=== PATIENT | female | born 1995 | race Caucasian/White ===

== ENCOUNTER 2018-08-15 10:45 | Outpatient (RCR) | payer OTHER, MEDICAID, SELFPAY ==
--- NOTE | 2018-04-16 06:49 | PT.OIE ---
Addendum entered and electronically signed by Vickie Gonzales PT 05/02/18 14:08: Date of care should be 04/12/18 Original Note: Current Diagnoses Patellofemoral disorders, left knee (04/12/18) Other specified disorders of muscle (04/12/18) Provider Visit Care Team Role Provider Type Amy Arvizu MD Family Provider Physician Primary Care Provider Specialty: PACKAGE CENTER SUPERVISOR Address: [address] [place] [address], [id number] Email: [email or web address] TYRONE Dickerson Attending Provider Advanced Elderly Sitter Specialty: Medical Address: [address] [place] [address], [id number] Email: Physical Therapy Initial Evaluation PT-OP-A Visit Information Start: 04/16/18 06:26 Freq: Status: Active Protocol: Document 04/12/18 09:45 [facility] (Rec: 04/16/18 06:49 [facility] [email or web address]) Out-Patient Physical Therapy Visit Information Visit Information Visit Type Initial Evaluation Visit Start Time 09:45 Visit Stop Time 10:30 Total Visit Minutes 45 Visit Number 1 Evaluation Information Evaluation Date 04/12/18 PT-OP-B Current Condition Start: 04/16/18 06:26 Freq: Status: Active Protocol: Document 04/12/18 09:45 [facility] (Rec: 04/16/18 06:49 [facility] [email or web address]) Current Condition History of Current Condition Onset Date symptoms increased after her second baby December 2016 Current Complaints urinary incontinence and knee pain L>R History of Current Condition Itzel is a 23 year old female with history of bilateral knee pain L >R that began in highschool and limited her ability to engage in PE and sports activities. She has had two vaginal deliveries in January and December 2016. She notes since that time she has experienced urinary leakage that occurs frequently 2-3 times per day. Treatment Goals Patient/Caregiver Goals Itzel would like to decrease her knee pain allowing her to run and improve strength of her pelvic floor to prevent urinary leakage PT-OP-I Pelvic Floor Start: 04/16/18 06:26 Freq: Status: Active Protocol: Document 04/12/18 09:45 [facility] (Rec: 04/16/18 06:49 [facility] [email or web address]) Pelvic Floor Assessment Urine Pelvic Floor Surgery No Urinary Symptoms Urge Sensation Leakage Size Small Leakage Cause Cough Exercise Lifting Sneeze Urge Leaks Per Day 4 Nocturia wakes 2 times at night Urine Pad Type Panty Liner Contraction Ability Voluntary Contraction Weak Voluntary Relaxation Weak Manual Muscle Testing Left 3 Manual Muscle Testing Right 3 Manual Muscle Testing Anterior 3 Manual Muscle Testing Posterior 3 Muscle Endurance (Seconds) 5 PT-OP-J Posture/Palpation/Skin Start: 04/16/18 06:26 Freq: Status: Active Protocol: Document 04/12/18 09:45 [facility] (Rec: 04/16/18 06:49 [facility] [email or web address]) Posture Evaluation Comments Posture Comments The patient stands with hip IR bilaterally, she walks with a gluteus medius drop Palpation Assessment Location Two Palpation Location left knee patella tendon Palpation Findings Tenderness Palpation Details tenderness to the patella tendon and distally under the patella One Palpation Location ITB Palpation Findings Soft Tissue Tightness Palpation Details Tightness of the ITB distal attachments bilaterally PT-OP-K Range of Motion Start: 04/16/18 06:26 Freq: Status: Active Protocol: Document 04/12/18 09:45 [facility] (Rec: 04/16/18 06:49 [facility] [email or web address]) Hip Goniometric Range of Motion Hip ROM Limitations Hip ROM Limitations Soft Tissue Tightness Muscle Weakness Comments limited in hip ER due to soft tissue tightness and gluteus medius weakness the hips like to be in a IR position at rest Knee Goniometric Range of Motion Knee Measured in Degrees Right Knee ROM WFL Yes Left Knee ROM WFL Yes PT-OP-M Strength Start: 04/16/18 06:26 Freq: Status: Active Protocol: Document 04/12/18 09:45 [facility] (Rec: 04/16/18 06:49 [facility] [email or web address]) Trunk Strength Trunk Manual Muscle Testing Core Stabilization Decreased core stabilization with + ASLR test for left sided pelvic weakness, decreased ability for transverse abdominal activation Hip Strength Hip Manual Muscle Testing Right Abduction 3+ Fair+ External Rotation 3+ Fair+ Left Abduction 3- Fair- External Rotation 3 Fair Knee Strength Knee Manual Muscle Testing Right Flexion (S2) 4+ Good+ Extension (L3) 4+ Good+ Left Flexion (S2) 4 Good Extension (L3) 4 Good PT-OP-T Assessment and Plan Start: 04/16/18 06:26 Freq: Status: Active Protocol: Document 04/12/18 09:45 [facility] (Rec: 04/16/18 06:49 [facility] [email or web address]) Physical Therapy Assessment Rehab Potential Rehabilitation Potential Good Impairments Impairments Activity Tolerance Pain Posture Soft Tissue Mobility Strength Goals Four Impairment Decreased endurance of the pelvic floor Short Term Goal (STG) Improve pelvic floor long hold endurance to 10 second hold time in supine STG Duration 6 weeks Three Impairment knee pain rated 4/5 People Manager Goal (LTG) Decrease complaints of knee pain with activity and Itzel is able to return to activities such as running with out knee pain LTG Duration 8 weeks Two Impairment Hip weakness left greater than right Fdc Goal (LTG) Improve strength of the hip ER and gluteus medius to provide pelvic stability and to help decrease complaints of patella femoral symptoms LTG Duration 8 weeks One Impairment urinary incontinence that effects daily life and work activities People Manager Goal (LTG) Itzel is educated on pelvic floor stabilization exercises to improve her support of the bladder. She is also educated on dietary irritants that increase symptoms of urinary incontinence LTG Duration 8 weeks Assessment Summary Assessment Itzel presents to PT today with symptoms of urinary incontinence following 2 vaginal deliveries and patella femoral pain that she has had since high school. With examination she is very weak in her inner core and hip strength. Her hips tend to rest in a IR position bilaterally and she walks with a gluteus medius drop. She is able to activate her levator ani but she is weak in all parts of the levator ani and lacks a ability to sustain a contraction. I feel both her knees and her pelvic floor will be greately improved with a exercise program addressing core and hip strength. Physical Therapy Plan Frequency and Duration Frequency of Treatment 2x/Week Duration of Treatment 8 weeks Plan of Care Start Date 04/12/18 Plan of Care End Date 06/07/18 Therapeutic Interventions Therapeutic Interventions Home Exercise Program Manual Therapy Neuromuscular Re-education Patient/Caregiver Education Self-Care/Home Management Soft Tissue Mobilization Therapeutic Exercises Modalities Biofeedback Cold Pack/Ice Massage
--- NOTE | 2018-04-16 06:49 | PT.OPPOC ---
Current Diagnoses Patellofemoral disorders, left knee (04/12/18) Other specified disorders of muscle (04/12/18) Provider Visit Care Team Role Provider Type Amy Arvizu MD Family Provider Physician Primary Care Provider Specialty: SEWAGE PLANT SUPERVISOR Address: [address] [place] [address], [id number] Email: [email or web address] TYRONE Dickerson Attending Provider Advanced Digital Media Director Specialty: Medical Address: [address] [place] [address], [address] Email: Plan Of Care PT-OP-T Assessment and Plan Start: 04/16/18 06:26 Freq: Status: Active Protocol: Document 04/12/18 09:45 [facility] (Rec: 04/16/18 06:49 [facility] [email or web address]) Physical Therapy Assessment Rehab Potential Rehabilitation Potential Good Impairments Impairments Activity Tolerance Pain Posture Soft Tissue Mobility Strength Goals Four Impairment Decreased endurance of the pelvic floor Short Term Goal (STG) Improve pelvic floor long hold endurance to 10 second hold time in supine STG Duration 6 weeks Three Impairment knee pain rated 4/5 Penitentiary Goal (LTG) Decrease complaints of knee pain with activity and Itzel is able to return to activities such as running with out knee pain LTG Duration 8 weeks Two Impairment Hip weakness left greater than right Penitentiary Goal (LTG) Improve strength of the hip ER and gluteus medius to provide pelvic stability and to help decrease complaints of patella femoral symptoms LTG Duration 8 weeks One Impairment urinary incontinence that effects daily life and work activities Quarry Manager Goal (LTG) Itzel is educated on pelvic floor stabilization exercises to improve her support of the bladder. She is also educated on dietary irritants that increase symptoms of urinary incontinence LTG Duration 8 weeks Assessment Summary Assessment Itzel presents to PT today with symptoms of urinary incontinence following 2 vaginal deliveries and patella femoral pain that she has had since high school. With examination she is very weak in her inner core and hip strength. Her hips tend to rest in a IR position bilaterally and she walks with a gluteus medius drop. She is able to activate her levator ani but she is weak in all parts of the levator ani and lacks a ability to sustain a contraction. I feel both her knees and her pelvic floor will be greately improved with a exercise program addressing core and hip strength. Physical Therapy Plan Frequency and Duration Frequency of Treatment 2x/Week Duration of Treatment 8 weeks Plan of Care Start Date 04/12/18 Plan of Care End Date 06/07/18 Therapeutic Interventions Therapeutic Interventions Home Exercise Program Manual Therapy Neuromuscular Re-education Patient/Caregiver Education Self-Care/Home Management Soft Tissue Mobilization Therapeutic Exercises Modalities Biofeedback Cold Pack/Ice Massage Plan of Care Dates Plan of Care Start Date 04/12/18 Plan of Care End Date 06/07/18 Please Sign and Return: I have reviewed this Plan of Care and certify that the skilled therapy services above are required to meet the patient?s needs. Physician Signature Date Printed Name and Credentials Clinical Instructor Signature Printed Name and Credentials
--- NOTE | 2018-04-26 16:20 | PT.OTN ---
Current Diagnoses Patellofemoral disorders, left knee (04/26/18) Other specified disorders of muscle (04/26/18) Physical Therapy Treatment Note PT-OP-A Visit Information Start: 04/16/18 06:26 Freq: Status: Active Protocol: Document 04/12/18 09:45 [facility] (Rec: 04/16/18 06:49 [facility] [email or web address]) Out-Patient Physical Therapy Visit Information Visit Information Visit Type Initial Evaluation Visit Start Time 09:45 Visit Stop Time 10:30 Total Visit Minutes 45 Visit Number 1 Evaluation Information Evaluation Date 04/12/18 PT-OP-B Current Condition Start: 04/16/18 06:26 Freq: Status: Active Protocol: Document 04/12/18 09:45 [facility] (Rec: 04/16/18 06:49 [facility] [email or web address]) Current Condition History of Current Condition Onset Date symptoms increased after her second baby December 2016 Current Complaints urinary incontinence and knee pain L>R History of Current Condition Itzel is a 23 year old female with history of bilateral knee pain L >R that began in highschool and limited her ability to engage in PE and sports activities. She has had two vaginal deliveries in January and December 2016. She notes since that time she has experienced urinary leakage that occurs frequently 2-3 times per day. Treatment Goals Patient/Caregiver Goals Itzel would like to decrease her knee pain allowing her to run and improve strength of her pelvic floor to prevent urinary leakage PT-OP-C Subjective Start: 04/16/18 06:26 Freq: Status: Active Protocol: Document 04/10/18 16:30 [facility] (Rec: 04/26/18 16:20 [facility] [email or web address]) OP-PT Subjective Patient Comments Patient Comments Itzel reports she was on vacation last week and had a virus so she didn't get as many of her home exercises done as she would have liked. PT-OP-I Pelvic Floor Start: 04/16/18 06:26 Freq: Status: Active Protocol: Document 04/12/18 09:45 [facility] (Rec: 04/16/18 06:49 [facility] [email or web address]) Pelvic Floor Assessment Urine Pelvic Floor Surgery No Urinary Symptoms Urge Sensation Leakage Size Small Leakage Cause Cough Exercise Lifting Sneeze Urge Leaks Per Day 4 Nocturia wakes 2 times at night Urine Pad Type Panty Liner Contraction Ability Voluntary Contraction Weak Voluntary Relaxation Weak Manual Muscle Testing Left 3 Manual Muscle Testing Right 3 Manual Muscle Testing Anterior 3 Manual Muscle Testing Posterior 3 Muscle Endurance (Seconds) 5 PT-OP-J Posture/Palpation/Skin Start: 04/16/18 06:26 Freq: Status: Active Protocol: Document 04/12/18 09:45 [facility] (Rec: 04/16/18 06:49 [facility] [email or web address]) Posture Evaluation Comments Posture Comments The patient stands with hip IR bilaterally, she walks with a gluteus medius drop Palpation Assessment Location Two Palpation Location left knee patella tendon Palpation Findings Tenderness Palpation Details tenderness to the patella tendon and distally under the patella One Palpation Location ITB Palpation Findings Soft Tissue Tightness Palpation Details Tightness of the ITB distal attachments bilaterally PT-OP-K Range of Motion Start: 04/16/18 06:26 Freq: Status: Active Protocol: Document 04/12/18 09:45 [facility] (Rec: 04/16/18 06:49 [facility] [email or web address]) Hip Goniometric Range of Motion Hip ROM Limitations Hip ROM Limitations Soft Tissue Tightness Muscle Weakness Comments limited in hip ER due to soft tissue tightness and gluteus medius weakness the hips like to be in a IR position at rest Knee Goniometric Range of Motion Knee Measured in Degrees Right Knee ROM WFL Yes Left Knee ROM WFL Yes PT-OP-M Strength Start: 04/16/18 06:26 Freq: Status: Active Protocol: Document 04/12/18 09:45 [facility] (Rec: 04/16/18 06:49 [facility] [email or web address]) Trunk Strength Trunk Manual Muscle Testing Core Stabilization Decreased core stabilization with + ASLR test for left sided pelvic weakness, decreased ability for transverse abdominal activation Hip Strength Hip Manual Muscle Testing Right Abduction 3+ Fair+ External Rotation 3+ Fair+ Left Abduction 3- Fair- External Rotation 3 Fair Knee Strength Knee Manual Muscle Testing Right Flexion (S2) 4+ Good+ Extension (L3) 4+ Good+ Left Flexion (S2) 4 Good Extension (L3) 4 Good PT-OP-Q Treatments Start: 04/16/18 06:26 Freq: Status: Active Protocol: Document 04/12/18 09:45 [facility] (Rec: 04/16/18 06:52 [facility] [email or web address]) Therapeutic Exercises Supine Exercises 1 Supine Exercise Name pelvic floor long holds Reps/Minutes 10 second holds 10 second relaxation Sidelying Exercises 1 Sidelying Exercise Name sidelying clam shells and sidelying hip abduction Side bilateral Reps/Minutes 3 x 10 PT-OP-T Assessment and Plan Start: 04/16/18 06:26 Freq: Status: Active Protocol: Document 04/12/18 09:45 [facility] (Rec: 04/16/18 06:49 [facility] [email or web address]) Physical Therapy Assessment Rehab Potential Rehabilitation Potential Good Impairments Impairments Activity Tolerance Pain Posture Soft Tissue Mobility Strength Goals Four Impairment Decreased endurance of the pelvic floor Short Term Goal (STG) Improve pelvic floor long hold endurance to 10 second hold time in supine STG Duration 6 weeks Three Impairment knee pain rated 4/5 Boxing Instructor Goal (LTG) Decrease complaints of knee pain with activity and Itzel is able to return to activities such as running with out knee pain LTG Duration 8 weeks Two Impairment Hip weakness left greater than right Correction Goal (LTG) Improve strength of the hip ER and gluteus medius to provide pelvic stability and to help decrease complaints of patella femoral symptoms LTG Duration 8 weeks One Impairment urinary incontinence that effects daily life and work activities Boxing Instructor Goal (LTG) Itzel is educated on pelvic floor stabilization exercises to improve her support of the bladder. She is also educated on dietary irritants that increase symptoms of urinary incontinence LTG Duration 8 weeks Assessment Summary Assessment Itzel presents to PT today with symptoms of urinary incontinence following 2 vaginal deliveries and patella femoral pain that she has had since high school. With examination she is very weak in her inner core and hip strength. Her hips tend to rest in a IR position bilaterally and she walks with a gluteus medius drop. She is able to activate her levator ani but she is weak in all parts of the levator ani and lacks a ability to sustain a contraction. I feel both her knees and her pelvic floor will be greately improved with a exercise program addressing core and hip strength. Physical Therapy Plan Frequency and Duration Frequency of Treatment 2x/Week Duration of Treatment 8 weeks Plan of Care Start Date 04/12/18 Plan of Care End Date 06/07/18 Therapeutic Interventions Therapeutic Interventions Home Exercise Program Manual Therapy Neuromuscular Re-education Patient/Caregiver Education Self-Care/Home Management Soft Tissue Mobilization Therapeutic Exercises Modalities Biofeedback Cold Pack/Ice Massage
--- NOTE | 2018-05-02 14:05 | PT.OTN ---
Current Diagnoses Patellofemoral disorders, left knee (05/02/18) Other specified disorders of muscle (05/02/18) Physical Therapy Treatment Note PT-OP-A Visit Information Start: 04/16/18 06:26 Freq: Status: Active Protocol: Document 05/02/18 13:59 [facility] (Rec: 05/02/18 14:05 [facility] [email or web address]) Out-Patient Physical Therapy Visit Information Visit Information Visit Type Treatment Note Visit Start Time 09:00 Visit Stop Time 09:45 Total Visit Minutes 45 Visit Number 3 PT-OP-B Current Condition Start: 04/16/18 06:26 Freq: Status: Active Protocol: Document 04/12/18 09:45 [facility] (Rec: 04/16/18 06:49 [facility] [email or web address]) Current Condition History of Current Condition Onset Date symptoms increased after her second baby December 2016 Current Complaints urinary incontinence and knee pain L>R History of Current Condition Itzel is a 23 year old female with history of bilateral knee pain L >R that began in highschool and limited her ability to engage in PE and sports activities. She has had two vaginal deliveries in January and December 2016. She notes since that time she has experienced urinary leakage that occurs frequently 2-3 times per day. Treatment Goals Patient/Caregiver Goals Itzel would like to decrease her knee pain allowing her to run and improve strength of her pelvic floor to prevent urinary leakage PT-OP-C Subjective Start: 04/16/18 06:26 Freq: Status: Active Protocol: Document 05/02/18 13:59 [facility] (Rec: 05/02/18 14:05 [facility] [email or web address]) OP-PT Subjective Patient Comments Patient Comments Itzel reports she has been working on her home exercise program PT-OP-I Pelvic Floor Start: 04/16/18 06:26 Freq: Status: Active Protocol: Document 04/12/18 09:45 [facility] (Rec: 04/16/18 06:49 [facility] [email or web address]) Pelvic Floor Assessment Urine Pelvic Floor Surgery No Urinary Symptoms Urge Sensation Leakage Size Small Leakage Cause Cough Exercise Lifting Sneeze Urge Leaks Per Day 4 Nocturia wakes 2 times at night Urine Pad Type Panty Liner Contraction Ability Voluntary Contraction Weak Voluntary Relaxation Weak Manual Muscle Testing Left 3 Manual Muscle Testing Right 3 Manual Muscle Testing Anterior 3 Manual Muscle Testing Posterior 3 Muscle Endurance (Seconds) 5 PT-OP-J Posture/Palpation/Skin Start: 04/16/18 06:26 Freq: Status: Active Protocol: Document 04/12/18 09:45 [facility] (Rec: 04/16/18 06:49 [facility] [email or web address]) Posture Evaluation Comments Posture Comments The patient stands with hip IR bilaterally, she walks with a gluteus medius drop Palpation Assessment Location Two Palpation Location left knee patella tendon Palpation Findings Tenderness Palpation Details tenderness to the patella tendon and distally under the patella One Palpation Location ITB Palpation Findings Soft Tissue Tightness Palpation Details Tightness of the ITB distal attachments bilaterally PT-OP-K Range of Motion Start: 04/16/18 06:26 Freq: Status: Active Protocol: Document 04/12/18 09:45 [facility] (Rec: 04/16/18 06:49 [facility] [email or web address]) Hip Goniometric Range of Motion Hip ROM Limitations Hip ROM Limitations Soft Tissue Tightness Muscle Weakness Comments limited in hip ER due to soft tissue tightness and gluteus medius weakness the hips like to be in a IR position at rest Knee Goniometric Range of Motion Knee Measured in Degrees Right Knee ROM WFL Yes Left Knee ROM WFL Yes PT-OP-M Strength Start: 04/16/18 06:26 Freq: Status: Active Protocol: Document 04/12/18 09:45 [facility] (Rec: 04/16/18 06:49 [facility] [email or web address]) Trunk Strength Trunk Manual Muscle Testing Core Stabilization Decreased core stabilization with + ASLR test for left sided pelvic weakness, decreased ability for transverse abdominal activation Hip Strength Hip Manual Muscle Testing Right Abduction 3+ Fair+ External Rotation 3+ Fair+ Left Abduction 3- Fair- External Rotation 3 Fair Knee Strength Knee Manual Muscle Testing Right Flexion (S2) 4+ Good+ Extension (L3) 4+ Good+ Left Flexion (S2) 4 Good Extension (L3) 4 Good PT-OP-Q Treatments Start: 04/16/18 06:26 Freq: Status: Active Protocol: Document 05/02/18 13:59 [facility] (Rec: 05/02/18 14:05 [facility] [email or web address]) Cardio Equipment Bicycle (Upright) Duration (Minutes) 5 Gym Equipment Shuttle Recovery Bilateral Squats Details shuttle squats Reps/Time 50 # double leg 3x10 25# single leg 3 x 10 Therapeutic Exercises Supine Exercises 2 Supine Exercise Name rollouts with theraband Reps/Minutes 2x10 1 Supine Exercise Name pelvic floor long holds Reps/Minutes 10 second holds 10 second relaxation Sidelying Exercises 2 Sidelying Exercise Name sidelying hip circles 1 Sidelying Exercise Name sidelying clam shells and sidelying hip abduction Side bilateral Reps/Minutes 3 x 10 Standing Exercises 1 Standing Exercise Name mini squats Other Exercises 1 Other Exercise Name quadraped cat cow and abdominal bracing PT-OP-T Assessment and Plan Start: 04/16/18 06:26 Freq: Status: Active Protocol: Document 05/02/18 13:59 [facility] (Rec: 05/02/18 14:05 [facility] [email or web address]) Physical Therapy Assessment Assessment Summary Assessment good tolerance today for new exercises. Keep working on knee and hip stabilization and pelvic floor neuro re- education. Add in NMES next visit Physical Therapy Plan Frequency and Duration Frequency of Treatment 2x/Week Duration of Treatment 8 weeks Plan of Care Start Date 04/12/18 Plan of Care End Date 06/07/18 Therapeutic Interventions Therapeutic Interventions Home Exercise Program Manual Therapy Neuromuscular Re-education Patient/Caregiver Education Self-Care/Home Management Soft Tissue Mobilization Therapeutic Exercises Modalities Biofeedback Cold Pack/Ice Massage Next Visit Focus/Plan Next Note Type Treatment Note Next Visit Plan add NMES next visit
--- NOTE | 2018-05-23 11:12 | PT.OTN ---
Current Diagnoses Patellofemoral disorders, left knee (05/23/18) Other specified disorders of muscle (05/23/18) Physical Therapy Treatment Note PT-OP-A Visit Information Start: 04/16/18 06:26 Freq: Status: Active Protocol: Document 05/23/18 10:59 AM[facility] (Rec: 05/23/18 11:12 AMH [email or web address]) Out-Patient Physical Therapy Visit Information Visit Information Visit Type Progress Note Visit Start Time 10:00 Visit Stop Time 10:50 Total Visit Minutes 50 Visit Number 4 Evaluation Information Evaluation Date 04/12/18 PT-OP-B Current Condition Start: 04/16/18 06:26 Freq: Status: Active Protocol: Document 04/12/18 09:45 AMH (Rec: 04/16/18 06:49 AMH [email or web address]) Current Condition History of Current Condition Onset Date symptoms increased after her second baby December 2016 Current Complaints urinary incontinence and knee pain L>R History of Current Condition Itzel is a 23 year old female with history of bilateral knee pain L >R that began in highschool and limited her ability to engage in PE and sports activities. She has had two vaginal deliveries in January and December 2016. She notes since that time she has experienced urinary leakage that occurs frequently 2-3 times per day. Treatment Goals Patient/Caregiver Goals Itzel would like to decrease her knee pain allowing her to run and improve strength of her pelvic floor to prevent urinary leakage PT-OP-C Subjective Start: 04/16/18 06:26 Freq: Status: Active Protocol: Document 05/23/18 10:59 AMH (Rec: 05/23/18 11:12 AMH [email or web address]) OP-PT Subjective Patient Comments Patient Comments Itzel notes her symptoms of urinary leakage are a little better. She is trying to fit in her home exercises PT-OP-I Pelvic Floor Start: 04/16/18 06:26 Freq: Status: Active Protocol: Document 05/23/18 10:59 AMH (Rec: 05/23/18 11:12 AMH [email or web address]) Pelvic Floor Assessment Urine Pelvic Floor Surgery No Urinary Symptoms Urge Sensation Leakage Size Small Leakage Cause Cough Exercise Lifting Sneeze Urge Leaks Per Day 2-3 Nocturia wakes 1-2 Urine Pad Type Panty Liner SEMG (uV) Baseline 2 10 Second Contraction 10.2 Recruitment Pattern Good Relaxation Fair Stability of Hold Fair SEMG Stability of Rest Fair Contraction Ability Voluntary Contraction Moderate Voluntary Relaxation Weak Manual Muscle Testing Left 3 Manual Muscle Testing Right 3 Manual Muscle Testing Anterior 3 Manual Muscle Testing Posterior 4 Muscle Endurance (Seconds) 5 Comments Pelvic Floor Comments improving strength of the pelvic floor and improved resting tone PT-OP-J Posture/Palpation/Skin Start: 04/16/18 06:26 Freq: Status: Active Protocol: Document 04/12/18 09:45 AMH (Rec: 04/16/18 06:49 AMH [email or web address]) Posture Evaluation Comments Posture Comments The patient stands with hip IR bilaterally, she walks with a gluteus medius drop Palpation Assessment Location Two Palpation Location left knee patella tendon Palpation Findings Tenderness Palpation Details tenderness to the patella tendon and distally under the patella One Palpation Location ITB Palpation Findings Soft Tissue Tightness Palpation Details Tightness of the ITB distal attachments bilaterally PT-OP-K Range of Motion Start: 04/16/18 06:26 Freq: Status: Active Protocol: Document 04/12/18 09:45 AMH (Rec: 04/16/18 06:49 AMH [email or web address]) Hip Goniometric Range of Motion Hip ROM Limitations Hip ROM Limitations Soft Tissue Tightness Muscle Weakness Comments limited in hip ER due to soft tissue tightness and gluteus medius weakness the hips like to be in a IR position at rest Knee Goniometric Range of Motion Knee Measured in Degrees Right Knee ROM WFL Yes Left Knee ROM WFL Yes PT-OP-M Strength Start: 04/16/18 06:26 Freq: Status: Active Protocol: Document 05/23/18 10:59 AMH (Rec: 05/23/18 11:12 AMH [email or web address]) Knee Strength Knee Manual Muscle Testing Right Flexion (S2) 4+ Good+ Extension (L3) 4+ Good+ Left Flexion (S2) 4 Good Extension (L3) 4 Good PT-OP-Q Treatments Start: 04/16/18 06:26 Freq: Status: Active Protocol: Document 05/23/18 10:59 AMH (Rec: 05/23/18 11:12 AMH [email or web address]) Cardio Equipment Bicycle (Upright) Duration (Minutes) 5 Gym Equipment Shuttle Recovery Bilateral Squats Details shuttle squats Reps/Time 50 # double leg 3x10 25# single leg 3 x 10 Therapeutic Exercises Supine Exercises 3 Supine Exercise Name pelvic floor quick contractions 1 Supine Exercise Name pelvic floor long holds Reps/Minutes 10 second holds 10 second relaxation Sidelying Exercises 3 Sidelying Exercise Name manual quadracep stretch in sidelying 2 Sidelying Exercise Name sidelying hip circles 1 Sidelying Exercise Name sidelying clam shells and sidelying hip abduction Side bilateral Reps/Minutes 3 x 10 Standing Exercises 1 Standing Exercise Name mini squats Other Exercises 2 Other Exercise Name side steps in mini lunge with theraband 1 Other Exercise Name quadraped cat cow and abdominal bracing Neuro Re-Education Treatment Other Activities 1 Details NMES with pelvic floor education Reps/Duration 5 minutes PT-OP-T Assessment and Plan Start: 04/16/18 06:26 Freq: Status: Active Protocol: Document 05/23/18 10:59 AMH (Rec: 05/23/18 11:12 AMH [email or web address]) Physical Therapy Assessment Progress Towards Goals Progress Towards Goals Progressing Toward Goals Assessment Summary Assessment Itzel has been seen for 4 visits in PT. Treatment is focusing on both pelvic floor strengthening and strengthening of the knee and hips. 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 I have recommended super feet arch supports as well for Itzel. She tends to wear very flat shoes which may be contributing to knee pain symptoms. Pelvic floor strength is improving and Itzel is beginning to notice decreased leakage. Her goal is to be able to run without leakage. She would benefit from continued PT to progress strengthening Physical Therapy Plan Frequency and Duration Frequency of Treatment 2x/Week Duration of Treatment 8 weeks Plan of Care Start Date 05/23/18 Plan of Care End Date 07/19/18 Therapeutic Interventions Therapeutic Interventions Home Exercise Program Manual Therapy Neuromuscular Re-education Patient/Caregiver Education Self-Care/Home Management Soft Tissue Mobilization Therapeutic Exercises Modalities Biofeedback Cold Pack/Ice Massage Next Visit Focus/Plan Next Note Type Treatment Note Next Visit Plan continue working on progressing ther ex and strengthening
--- NOTE | 2018-05-23 11:12 | PT.OPPOC ---
Current Diagnoses Patellofemoral disorders, left knee (05/23/18) Other specified disorders of muscle (05/23/18) Provider Visit Care Team Role Provider Type Amy Arvizu MD Family Provider Physician Primary Care Provider Specialty: [employer] Address: [address] [place] [address], [id number] Email: [email or web address] TYRONE Dickerson Attending Provider [facility] Home Specialty: Medical Address: [address] [place] [address], [phone] Email: Plan Of Care PT-OP-T Assessment and Plan Start: 04/16/18 06:26 Freq: Status: Active Protocol: Document 05/23/18 10:59 AMH (Rec: 05/23/18 11:12 AMH [email or web address]) Physical Therapy Assessment Progress Towards Goals Progress Towards Goals Progressing Toward Goals Assessment Summary Assessment Itzel has been seen for 4 visits in PT. Treatment is focusing on both pelvic floor strengthening and strengthening of the knee and hips. 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 I have recommended super feet arch supports as well for Itzel. She tends to wear very flat shoes which may be contributing to knee pain symptoms. Pelvic floor strength is improving and Itzel is beginning to notice decreased leakage. Her goal is to be able to run without leakage. She would benefit from continued PT to progress strengthening Physical Therapy Plan Frequency and Duration Frequency of Treatment 2x/Week Duration of Treatment 8 weeks Plan of Care Start Date 05/23/18 Plan of Care End Date 07/19/18 Therapeutic Interventions Therapeutic Interventions Home Exercise Program Manual Therapy Neuromuscular Re-education Patient/Caregiver Education Self-Care/Home Management Soft Tissue Mobilization Therapeutic Exercises Modalities Biofeedback Cold Pack/Ice Massage Next Visit Focus/Plan Next Note Type Treatment Note Next Visit Plan continue working on progressing ther ex and strengthening Plan of Care Dates Plan of Care Start Date 05/23/18 Plan of Care End Date 07/19/18 Please Sign and Return: I have reviewed this Plan of Care and certify that the skilled therapy services above are required to meet the patient?s needs. Physician Signature Date Printed Name and Credentials Clinical Instructor Signature Printed Name and Credentials
--- NOTE | 2018-06-03 08:20 | PT.OTN ---
Current Diagnoses Patellofemoral disorders, left knee (05/30/18) Other specified disorders of muscle (05/30/18) Physical Therapy Treatment Note PT-OP-A Visit Information Start: 04/16/18 06:26 Freq: Status: Active Protocol: Document 05/30/18 10:00 AMH (Rec: 06/03/18 08:20 AMH [email or web address]) Out-Patient Physical Therapy Visit Information Visit Information Visit Type Treatment Note Visit Start Time 10:00 Visit Stop Time 10:45 Total Visit Minutes 45 Visit Number 5 PT-OP-B Current Condition Start: 04/16/18 06:26 Freq: Status: Active Protocol: Document 04/12/18 09:45 AMH (Rec: 04/16/18 06:49 AMH [email or web address]) Current Condition History of Current Condition Onset Date symptoms increased after her second baby December 2016 Current Complaints urinary incontinence and knee pain L>R History of Current Condition Itzel is a 23 year old female with history of bilateral knee pain L >R that began in highschool and limited her ability to engage in PE and sports activities. She has had two vaginal deliveries in January and December 2016. She notes since that time she has experienced urinary leakage that occurs frequently 2-3 times per day. Treatment Goals Patient/Caregiver Goals Itzel would like to decrease her knee pain allowing her to run and improve strength of her pelvic floor to prevent urinary leakage PT-OP-C Subjective Start: 04/16/18 06:26 Freq: Status: Active Protocol: Document 05/30/18 10:00 AMH (Rec: 06/03/18 08:20 AMH [email or web address]) OP-PT Subjective Patient Comments Patient Comments Itzel notes symptoms are improving some. She is on her menstrual cycle today so wont be able to do biofeedback PT-OP-I Pelvic Floor Start: 04/16/18 06:26 Freq: Status: Active Protocol: Document 05/23/18 10:59 AMH (Rec: 05/23/18 11:12 AMH [email or web address]) Pelvic Floor Assessment Urine Pelvic Floor Surgery No Urinary Symptoms Urge Sensation Leakage Size Small Leakage Cause Cough Exercise Lifting Sneeze Urge Leaks Per Day 2-3 Nocturia wakes 1-2 Urine Pad Type Panty Liner SEMG (uV) Baseline 2 10 Second Contraction 10.2 Recruitment Pattern Good Relaxation Fair Stability of Hold Fair SEMG Stability of Rest Fair Contraction Ability Voluntary Contraction Moderate Voluntary Relaxation Weak Manual Muscle Testing Left 3 Manual Muscle Testing Right 3 Manual Muscle Testing Anterior 3 Manual Muscle Testing Posterior 4 Muscle Endurance (Seconds) 5 Comments Pelvic Floor Comments improving strength of the pelvic floor and improved resting tone PT-OP-J Posture/Palpation/Skin Start: 04/16/18 06:26 Freq: Status: Active Protocol: Document 04/12/18 09:45 AMH (Rec: 04/16/18 06:49 AMH [email or web address]) Posture Evaluation Comments Posture Comments The patient stands with hip IR bilaterally, she walks with a gluteus medius drop Palpation Assessment Location Two Palpation Location left knee patella tendon Palpation Findings Tenderness Palpation Details tenderness to the patella tendon and distally under the patella One Palpation Location ITB Palpation Findings Soft Tissue Tightness Palpation Details Tightness of the ITB distal attachments bilaterally PT-OP-K Range of Motion Start: 04/16/18 06:26 Freq: Status: Active Protocol: Document 04/12/18 09:45 AMH (Rec: 04/16/18 06:49 AMH [email or web address]) Hip Goniometric Range of Motion Hip ROM Limitations Hip ROM Limitations Soft Tissue Tightness Muscle Weakness Comments limited in hip ER due to soft tissue tightness and gluteus medius weakness the hips like to be in a IR position at rest Knee Goniometric Range of Motion Knee Measured in Degrees Right Knee ROM WFL Yes Left Knee ROM WFL Yes PT-OP-M Strength Start: 04/16/18 06:26 Freq: Status: Active Protocol: Document 05/23/18 10:59 AMH (Rec: 05/23/18 11:12 AMH [email or web address]) Knee Strength Knee Manual Muscle Testing Right Flexion (S2) 4+ Good+ Extension (L3) 4+ Good+ Left Flexion (S2) 4 Good Extension (L3) 4 Good PT-OP-Q Treatments Start: 04/16/18 06:26 Freq: Status: Active Protocol: Document 05/30/18 10:00 AMH (Rec: 06/03/18 08:20 AMH [email or web address]) Cardio Equipment Bicycle (Upright) Duration (Minutes) 5 Gym Equipment Shuttle Recovery Bilateral Squats Details shuttle squats Reps/Time 50 # double leg 3x10 25# single leg 3 x 10 Therapeutic Exercises Supine Exercises 3 Supine Exercise Name pelvic floor quick contractions 2 Supine Exercise Name rollouts with theraband Reps/Minutes 2x10 1 Supine Exercise Name pelvic floor long holds Reps/Minutes 10 second holds 10 second relaxation Sidelying Exercises 3 Sidelying Exercise Name manual quadracep stretch in sidelying 1 Sidelying Exercise Name sidelying clam shells and sidelying hip abduction Side bilateral Reps/Minutes 3 x 10 Standing Exercises 1 Standing Exercise Name mini squats Other Exercises 2 Other Exercise Name side steps in mini lunge with theraband PT-OP-T Assessment and Plan Start: 04/16/18 06:26 Freq: Status: Active Protocol: Document 05/30/18 10:00 AMH (Rec: 06/03/18 08:20 AMH [email or web address]) Physical Therapy Assessment Assessment Summary Assessment good progress with tolerance for ther ex and improving knee alignment. Continue progressing ther ex as tolerated Physical Therapy Plan Frequency and Duration Frequency of Treatment 2x/Week Duration of Treatment 8 weeks Plan of Care Start Date 05/23/18 Plan of Care End Date 07/19/18 Therapeutic Interventions Therapeutic Interventions Home Exercise Program Manual Therapy Neuromuscular Re-education Patient/Caregiver Education Self-Care/Home Management Soft Tissue Mobilization Therapeutic Exercises Modalities Biofeedback Cold Pack/Ice Massage Next Visit Focus/Plan Next Note Type Treatment Note Next Visit Plan continue working on progressing ther ex and strengthening
--- NOTE | 2018-06-12 16:21 | PT.OTN ---
Current Diagnoses Patellofemoral disorders, left knee (06/12/18) Other specified disorders of muscle (06/12/18) Physical Therapy Treatment Note PT-OP-A Visit Information Start: 04/16/18 06:26 Freq: Status: Active Protocol: Document 06/12/18 13:10 AMH (Rec: 06/12/18 13:12 AMH [email or web address]) Out-Patient Physical Therapy Visit Information Visit Information Visit Type Treatment Note Visit Start Time 09:45 Visit Stop Time 10:30 Total Visit Minutes 45 Visit Number 6 PT-OP-B Current Condition Start: 04/16/18 06:26 Freq: Status: Active Protocol: Document 04/12/18 09:45 AMH (Rec: 04/16/18 06:49 AMH [email or web address]) Current Condition History of Current Condition Onset Date symptoms increased after her second baby December 2016 Current Complaints urinary incontinence and knee pain L>R History of Current Condition Itzel is a 23 year old female with history of bilateral knee pain L >R that began in highschool and limited her ability to engage in PE and sports activities. She has had two vaginal deliveries in January and December 2016. She notes since that time she has experienced urinary leakage that occurs frequently 2-3 times per day. Treatment Goals Patient/Caregiver Goals Itzel would like to decrease her knee pain allowing her to run and improve strength of her pelvic floor to prevent urinary leakage PT-OP-C Subjective Start: 04/16/18 06:26 Freq: Status: Active Protocol: Document 06/12/18 16:16 AMH (Rec: 06/12/18 16:21 AMH [email or web address]) OP-PT Subjective Patient Comments Patient Comments Itzel reports she is achey all over today. She is doing better with decreased complaints of leakage PT-OP-I Pelvic Floor Start: 04/16/18 06:26 Freq: Status: Active Protocol: Document 05/23/18 10:59 AMH (Rec: 05/23/18 11:12 AMH [email or web address]) Pelvic Floor Assessment Urine Pelvic Floor Surgery No Urinary Symptoms Urge Sensation Leakage Size Small Leakage Cause Cough Exercise Lifting Sneeze Urge Leaks Per Day 2-3 Nocturia wakes 1-2 Urine Pad Type Panty Liner SEMG (uV) Baseline 2 10 Second Contraction 10.2 Recruitment Pattern Good Relaxation Fair Stability of Hold Fair SEMG Stability of Rest Fair Contraction Ability Voluntary Contraction Moderate Voluntary Relaxation Weak Manual Muscle Testing Left 3 Manual Muscle Testing Right 3 Manual Muscle Testing Anterior 3 Manual Muscle Testing Posterior 4 Muscle Endurance (Seconds) 5 Comments Pelvic Floor Comments improving strength of the pelvic floor and improved resting tone PT-OP-J Posture/Palpation/Skin Start: 04/16/18 06:26 Freq: Status: Active Protocol: Document 04/12/18 09:45 AMH (Rec: 04/16/18 06:49 AMH [email or web address]) Posture Evaluation Comments Posture Comments The patient stands with hip IR bilaterally, she walks with a gluteus medius drop Palpation Assessment Location Two Palpation Location left knee patella tendon Palpation Findings Tenderness Palpation Details tenderness to the patella tendon and distally under the patella One Palpation Location ITB Palpation Findings Soft Tissue Tightness Palpation Details Tightness of the ITB distal attachments bilaterally PT-OP-K Range of Motion Start: 04/16/18 06:26 Freq: Status: Active Protocol: Document 04/12/18 09:45 AMH (Rec: 04/16/18 06:49 AMH [email or web address]) Hip Goniometric Range of Motion Hip ROM Limitations Hip ROM Limitations Soft Tissue Tightness Muscle Weakness Comments limited in hip ER due to soft tissue tightness and gluteus medius weakness the hips like to be in a IR position at rest Knee Goniometric Range of Motion Knee Measured in Degrees Right Knee ROM WFL Yes Left Knee ROM WFL Yes PT-OP-M Strength Start: 04/16/18 06:26 Freq: Status: Active Protocol: Document 05/23/18 10:59 AMH (Rec: 05/23/18 11:12 AMH [email or web address]) Knee Strength Knee Manual Muscle Testing Right Flexion (S2) 4+ Good+ Extension (L3) 4+ Good+ Left Flexion (S2) 4 Good Extension (L3) 4 Good PT-OP-Q Treatments Start: 04/16/18 06:26 Freq: Status: Active Protocol: Document 06/12/18 16:16 AMH (Rec: 06/12/18 16:21 AMH [email or web address]) Cardio Equipment Bicycle (Upright) Duration (Minutes) 5 Gym Equipment Shuttle Recovery Bilateral Squats Details shuttle squats Reps/Time 50 # double leg 3x10 25# single leg 3 x 10 Therapeutic Exercises Supine Exercises 3 Supine Exercise Name pelvic floor quick contractions 2 Supine Exercise Name rollouts with theraband Reps/Minutes 2x10 1 Supine Exercise Name pelvic floor long holds Reps/Minutes 10 second holds 10 second relaxation Other Exercises 3 Other Exercise Name hamstring stretch B PT-OP-T Assessment and Plan Start: 04/16/18 06:26 Freq: Status: Active Protocol: Document 06/12/18 16:16 AMH (Rec: 06/12/18 16:21 AMH [email or web address]) Physical Therapy Assessment Assessment Summary Assessment good increase today with average of 14.0 uv and max of 21 uv. Itzel has doubled her strength. We did talk about the importance of keeping her back relaxed with pelvic floor contractions today to decrease any spasm in her lumbar spine Physical Therapy Plan Frequency and Duration Frequency of Treatment 2x/Week Duration of Treatment 8 weeks Plan of Care Start Date 05/23/18 Plan of Care End Date 07/19/18 Therapeutic Interventions Therapeutic Interventions Home Exercise Program Manual Therapy Neuromuscular Re-education Patient/Caregiver Education Self-Care/Home Management Soft Tissue Mobilization Therapeutic Exercises Modalities Biofeedback Cold Pack/Ice Massage Next Visit Focus/Plan Next Note Type Treatment Note Next Visit Plan continue working on progressing ther ex and strengthening
--- NOTE | 2018-06-21 11:38 | PT.OTN ---
Current Diagnoses Patellofemoral disorders, left knee (06/21/18) Other specified disorders of muscle (06/21/18) Physical Therapy Treatment Note PT-OP-A Visit Information Start: 04/16/18 06:26 Freq: Status: Active Protocol: Document 06/21/18 11:32 [facility] (Rec: 06/21/18 11:38 [facility] [email or web address]) Out-Patient Physical Therapy Visit Information Visit Information Visit Type Treatment Note Visit Start Time 09:45 Visit Stop Time 10:30 Total Visit Minutes 45 Visit Number 7 Evaluation Information Evaluation Date 04/12/18 PT-OP-B Current Condition Start: 04/16/18 06:26 Freq: Status: Active Protocol: Document 04/12/18 09:45 [facility] (Rec: 04/16/18 06:49 [facility] [email or web address]) Current Condition History of Current Condition Onset Date symptoms increased after her second baby December 2016 Current Complaints urinary incontinence and knee pain L>R History of Current Condition Itzel is a 23 year old female with history of bilateral knee pain L >R that began in highschool and limited her ability to engage in PE and sports activities. She has had two vaginal deliveries in January and December 2016. She notes since that time she has experienced urinary leakage that occurs frequently 2-3 times per day. Treatment Goals Patient/Caregiver Goals Itzel would like to decrease her knee pain allowing her to run and improve strength of her pelvic floor to prevent urinary leakage PT-OP-C Subjective Start: 04/16/18 06:26 Freq: Status: Active Protocol: Document 06/21/18 11:32 [facility] (Rec: 06/21/18 11:38 [facility] [email or web address]) OP-PT Subjective Patient Comments Patient Comments Itzel notes she forgot her electrode today. Pelvic floor symptoms are doing better. SHe has the most symptoms right before her period which is right now. PT-OP-I Pelvic Floor Start: 04/16/18 06:26 Freq: Status: Active Protocol: Document 05/23/18 10:59 [facility] (Rec: 05/23/18 11:12 [facility] [email or web address]) Pelvic Floor Assessment Urine Pelvic Floor Surgery No Urinary Symptoms Urge Sensation Leakage Size Small Leakage Cause Cough Exercise Lifting Sneeze Urge Leaks Per Day 2-3 Nocturia wakes 1-2 Urine Pad Type Panty Liner SEMG (uV) Baseline 2 10 Second Contraction 10.2 Recruitment Pattern Good Relaxation Fair Stability of Hold Fair SEMG Stability of Rest Fair Contraction Ability Voluntary Contraction Moderate Voluntary Relaxation Weak Manual Muscle Testing Left 3 Manual Muscle Testing Right 3 Manual Muscle Testing Anterior 3 Manual Muscle Testing Posterior 4 Muscle Endurance (Seconds) 5 Comments Pelvic Floor Comments improving strength of the pelvic floor and improved resting tone PT-OP-J Posture/Palpation/Skin Start: 04/16/18 06:26 Freq: Status: Active Protocol: Document 04/12/18 09:45 [facility] (Rec: 04/16/18 06:49 [facility] [email or web address]) Posture Evaluation Comments Posture Comments The patient stands with hip IR bilaterally, she walks with a gluteus medius drop Palpation Assessment Location Two Palpation Location left knee patella tendon Palpation Findings Tenderness Palpation Details tenderness to the patella tendon and distally under the patella One Palpation Location ITB Palpation Findings Soft Tissue Tightness Palpation Details Tightness of the ITB distal attachments bilaterally PT-OP-K Range of Motion Start: 04/16/18 06:26 Freq: Status: Active Protocol: Document 04/12/18 09:45 [facility] (Rec: 04/16/18 06:49 [facility] [email or web address]) Hip Goniometric Range of Motion Hip ROM Limitations Hip ROM Limitations Soft Tissue Tightness Muscle Weakness Comments limited in hip ER due to soft tissue tightness and gluteus medius weakness the hips like to be in a IR position at rest Knee Goniometric Range of Motion Knee Measured in Degrees Right Knee ROM WFL Yes Left Knee ROM WFL Yes PT-OP-M Strength Start: 04/16/18 06:26 Freq: Status: Active Protocol: Document 05/23/18 10:59 [facility] (Rec: 05/23/18 11:12 [facility] [email or web address]) Knee Strength Knee Manual Muscle Testing Right Flexion (S2) 4+ Good+ Extension (L3) 4+ Good+ Left Flexion (S2) 4 Good Extension (L3) 4 Good PT-OP-Q Treatments Start: 04/16/18 06:26 Freq: Status: Active Protocol: Document 06/21/18 11:32 [facility] (Rec: 06/21/18 11:38 [facility] [email or web address]) Cardio Equipment Bicycle (Upright) Duration (Minutes) 5 Gym Equipment Shuttle Recovery Bilateral Squats Details shuttle squats Reps/Time 62 # double leg 3x10 25# single leg 3 x 10 Therapeutic Exercises Supine Exercises 3 Supine Exercise Name pelvic floor quick contractions 2 Supine Exercise Name rollouts with theraband Reps/Minutes 2x10 1 Supine Exercise Name pelvic floor long holds Reps/Minutes 10 second holds 10 second relaxation Sidelying Exercises 1 Sidelying Exercise Name sidelying clam shells and sidelying hip abduction Side bilateral Reps/Minutes 3 x 10 Comments with theraband Standing Exercises 2 Standing Exercise Name standing lunges Comments holding onto cable straps for support 1 Standing Exercise Name squats Comments holding on to cable straps Other Exercises 2 Other Exercise Name side steps in mini squat with theraband PT-OP-T Assessment and Plan Start: 04/16/18 06:26 Freq: Status: Active Protocol: Document 06/21/18 11:32 [facility] (Rec: 06/21/18 11:38 [facility] [email or web address]) Physical Therapy Assessment Assessment Summary Assessment improved knee alignment today with ther ex and decreasing c/ o knee symptoms Physical Therapy Plan Frequency and Duration Frequency of Treatment 2x/Week Duration of Treatment 8 weeks Plan of Care Start Date 05/23/18 Plan of Care End Date 07/19/18 Therapeutic Interventions Therapeutic Interventions Home Exercise Program Manual Therapy Neuromuscular Re-education Patient/Caregiver Education Self-Care/Home Management Soft Tissue Mobilization Therapeutic Exercises Modalities Biofeedback Cold Pack/Ice Massage Next Visit Focus/Plan Next Note Type Treatment Note Next Visit Plan continue working on progressing ther ex and strengthening
--- NOTE | 2018-06-27 14:18 | PT.OTN ---
Current Diagnoses Patellofemoral disorders, left knee (06/27/18) Other specified disorders of muscle (06/27/18) Physical Therapy Treatment Note PT-OP-A Visit Information Start: 04/16/18 06:26 Freq: Status: Active Protocol: Document 06/27/18 14:08 [facility] (Rec: 06/27/18 14:17 [facility] [id number]) Out-Patient Physical Therapy Visit Information Visit Information Visit Type Treatment Note Visit Start Time 10:00 Visit Stop Time 10:45 Total Visit Minutes 45 Visit Number 8 PT-OP-B Current Condition Start: 04/16/18 06:26 Freq: Status: Active Protocol: Document 04/12/18 09:45 [facility] (Rec: 04/16/18 06:49 [facility] [email or web address]) Current Condition History of Current Condition Onset Date symptoms increased after her second baby December 2016 Current Complaints urinary incontinence and knee pain L>R History of Current Condition Itzel is a 23 year old female with history of bilateral knee pain L >R that began in highschool and limited her ability to engage in PE and sports activities. She has had two vaginal deliveries in January and December 2016. She notes since that time she has experienced urinary leakage that occurs frequently 2-3 times per day. Treatment Goals Patient/Caregiver Goals Itzel would like to decrease her knee pain allowing her to run and improve strength of her pelvic floor to prevent urinary leakage PT-OP-C Subjective Start: 04/16/18 06:26 Freq: Status: Active Protocol: Document 06/27/18 14:08 [facility] (Rec: 06/27/18 14:17 [facility] [id number]) OP-PT Subjective Patient Comments Patient Comments Overall knee pain is decreasing and incontinence is decreased. Feeling like she has ankle joint pain PT-OP-I Pelvic Floor Start: 04/16/18 06:26 Freq: Status: Active Protocol: Document 05/23/18 10:59 [facility] (Rec: 05/23/18 11:12 [facility] [email or web address]) Pelvic Floor Assessment Urine Pelvic Floor Surgery No Urinary Symptoms Urge Sensation Leakage Size Small Leakage Cause Cough Exercise Lifting Sneeze Urge Leaks Per Day 2-3 Nocturia wakes 1-2 Urine Pad Type Panty Liner SEMG (uV) Baseline 2 10 Second Contraction 10.2 Recruitment Pattern Good Relaxation Fair Stability of Hold Fair SEMG Stability of Rest Fair Contraction Ability Voluntary Contraction Moderate Voluntary Relaxation Weak Manual Muscle Testing Left 3 Manual Muscle Testing Right 3 Manual Muscle Testing Anterior 3 Manual Muscle Testing Posterior 4 Muscle Endurance (Seconds) 5 Comments Pelvic Floor Comments improving strength of the pelvic floor and improved resting tone PT-OP-J Posture/Palpation/Skin Start: 04/16/18 06:26 Freq: Status: Active Protocol: Document 04/12/18 09:45 [facility] (Rec: 04/16/18 06:49 [facility] [email or web address]) Posture Evaluation Comments Posture Comments The patient stands with hip IR bilaterally, she walks with a gluteus medius drop Palpation Assessment Location Two Palpation Location left knee patella tendon Palpation Findings Tenderness Palpation Details tenderness to the patella tendon and distally under the patella One Palpation Location ITB Palpation Findings Soft Tissue Tightness Palpation Details Tightness of the ITB distal attachments bilaterally PT-OP-K Range of Motion Start: 04/16/18 06:26 Freq: Status: Active Protocol: Document 04/12/18 09:45 [facility] (Rec: 04/16/18 06:49 [facility] [email or web address]) Hip Goniometric Range of Motion Hip ROM Limitations Hip ROM Limitations Soft Tissue Tightness Muscle Weakness Comments limited in hip ER due to soft tissue tightness and gluteus medius weakness the hips like to be in a IR position at rest Knee Goniometric Range of Motion Knee Measured in Degrees Right Knee ROM WFL Yes Left Knee ROM WFL Yes PT-OP-M Strength Start: 04/16/18 06:26 Freq: Status: Active Protocol: Document 05/23/18 10:59 [facility] (Rec: 05/23/18 11:12 [facility] [email or web address]) Knee Strength Knee Manual Muscle Testing Right Flexion (S2) 4+ Good+ Extension (L3) 4+ Good+ Left Flexion (S2) 4 Good Extension (L3) 4 Good PT-OP-Q Treatments Start: 04/16/18 06:26 Freq: Status: Active Protocol: Document 06/27/18 14:08 [facility] (Rec: 06/27/18 14:17 [facility] [id number]) Cardio Equipment Bicycle (Upright) Duration (Minutes) 5 Gym Equipment Shuttle Recovery Bilateral Squats Details shuttle squats Reps/Time 62 # double leg 3x10 25# single leg 3 x 10 Therapeutic Exercises Sidelying Exercises 3 Sidelying Exercise Name manual quadracep stretch in sidelying 2 Sidelying Exercise Name sidelying hip circles 1 Sidelying Exercise Name sidelying clam shells and sidelying hip abduction Side bilateral Reps/Minutes 3 x 10 Comments with theraband Standing Exercises 2 Standing Exercise Name standing lunges Comments holding onto cable straps for support 1 Standing Exercise Name squats Comments holding on to cable straps Other Exercises 3 Other Exercise Name hamstring stretch B 2 Other Exercise Name side steps in mini squat with theraband 1 Other Exercise Name quadraped cat cow and abdominal bracing PT-OP-T Assessment and Plan Start: 04/16/18 06:26 Freq: Status: Active Protocol: Document 06/27/18 14:08 [facility] (Rec: 06/27/18 14:17 [facility] [id number]) Physical Therapy Assessment Assessment Summary Assessment Improving tolerance for LE dynamic activities and improved form with decreased hip IR Physical Therapy Plan Frequency and Duration Frequency of Treatment 2x/Week Duration of Treatment 8 weeks Plan of Care Start Date 05/23/18 Plan of Care End Date 07/19/18 Next Visit Focus/Plan Next Note Type Treatment Note Next Visit Plan continue working on progressing ther ex and strengthening
--- NOTE | 2018-07-04 14:25 | PT.OTN ---
Current Diagnoses Patellofemoral disorders, left knee (07/04/18) Other specified disorders of muscle (07/04/18) Physical Therapy Treatment Note PT-OP-A Visit Information Start: 04/16/18 06:26 Freq: Status: Active Protocol: Document 07/04/18 14:21 [facility] (Rec: 07/04/18 14:25 [facility] [email or web address]) Out-Patient Physical Therapy Visit Information Visit Information Visit Type Treatment Note Visit Start Time 10:00 Visit Stop Time 10:45 Total Visit Minutes 45 Visit Number 9 Evaluation Information Evaluation Date 04/12/18 PT-OP-B Current Condition Start: 04/16/18 06:26 Freq: Status: Active Protocol: Document 04/12/18 09:45 [facility] (Rec: 04/16/18 06:49 [facility] [email or web address]) Current Condition History of Current Condition Onset Date symptoms increased after her second baby December 2016 Current Complaints urinary incontinence and knee pain L>R History of Current Condition Itzel is a 23 year old female with history of bilateral knee pain L >R that began in highschool and limited her ability to engage in PE and sports activities. She has had two vaginal deliveries in January and December 2016. She notes since that time she has experienced urinary leakage that occurs frequently 2-3 times per day. Treatment Goals Patient/Caregiver Goals Itzel would like to decrease her knee pain allowing her to run and improve strength of her pelvic floor to prevent urinary leakage PT-OP-C Subjective Start: 04/16/18 06:26 Freq: Status: Active Protocol: Document 06/27/18 14:08 [facility] (Rec: 06/27/18 14:17 [facility] [id number]) OP-PT Subjective Patient Comments Patient Comments Overall knee pain is decreasing and incontinence is decreased. Feeling like she has ankle joint pain PT-OP-I Pelvic Floor Start: 04/16/18 06:26 Freq: Status: Active Protocol: Document 05/23/18 10:59 [facility] (Rec: 05/23/18 11:12 [facility] [email or web address]) Pelvic Floor Assessment Urine Pelvic Floor Surgery No Urinary Symptoms Urge Sensation Leakage Size Small Leakage Cause Cough Exercise Lifting Sneeze Urge Leaks Per Day 2-3 Nocturia wakes 1-2 Urine Pad Type Panty Liner SEMG (uV) Baseline 2 10 Second Contraction 10.2 Recruitment Pattern Good Relaxation Fair Stability of Hold Fair SEMG Stability of Rest Fair Contraction Ability Voluntary Contraction Moderate Voluntary Relaxation Weak Manual Muscle Testing Left 3 Manual Muscle Testing Right 3 Manual Muscle Testing Anterior 3 Manual Muscle Testing Posterior 4 Muscle Endurance (Seconds) 5 Comments Pelvic Floor Comments improving strength of the pelvic floor and improved resting tone PT-OP-J Posture/Palpation/Skin Start: 04/16/18 06:26 Freq: Status: Active Protocol: Document 04/12/18 09:45 [facility] (Rec: 04/16/18 06:49 [facility] [email or web address]) Posture Evaluation Comments Posture Comments The patient stands with hip IR bilaterally, she walks with a gluteus medius drop Palpation Assessment Location Two Palpation Location left knee patella tendon Palpation Findings Tenderness Palpation Details tenderness to the patella tendon and distally under the patella One Palpation Location ITB Palpation Findings Soft Tissue Tightness Palpation Details Tightness of the ITB distal attachments bilaterally PT-OP-K Range of Motion Start: 04/16/18 06:26 Freq: Status: Active Protocol: Document 04/12/18 09:45 [facility] (Rec: 04/16/18 06:49 [facility] [email or web address]) Hip Goniometric Range of Motion Hip ROM Limitations Hip ROM Limitations Soft Tissue Tightness Muscle Weakness Comments limited in hip ER due to soft tissue tightness and gluteus medius weakness the hips like to be in a IR position at rest Knee Goniometric Range of Motion Knee Measured in Degrees Right Knee ROM WFL Yes Left Knee ROM WFL Yes PT-OP-M Strength Start: 04/16/18 06:26 Freq: Status: Active Protocol: Document 05/23/18 10:59 [facility] (Rec: 05/23/18 11:12 [facility] [email or web address]) Knee Strength Knee Manual Muscle Testing Right Flexion (S2) 4+ Good+ Extension (L3) 4+ Good+ Left Flexion (S2) 4 Good Extension (L3) 4 Good PT-OP-Q Treatments Start: 04/16/18 06:26 Freq: Status: Active Protocol: Document 07/04/18 14:21 [facility] (Rec: 07/04/18 14:25 [facility] [email or web address]) Cardio Equipment Bicycle (Upright) Duration (Minutes) 5 Therapeutic Exercises Supine Exercises 3 Supine Exercise Name pelvic floor quick contractions 1 Supine Exercise Name pelvic floor long holds Reps/Minutes 10 second holds 10 second relaxation Sidelying Exercises 2 Sidelying Exercise Name sidelying hip circles 1 Sidelying Exercise Name sidelying clam shells and sidelying hip abduction Side bilateral Reps/Minutes 3 x 10 Comments with theraband Standing Exercises 1 Standing Exercise Name squats Comments holding on to cable straps Other Exercises 5 Other Exercise Name piriformis stretch 4 Other Exercise Name prone over the ball hip extension and abduction Reps/Minutes 2x10 reps 3 Other Exercise Name hamstring stretch B 1 Other Exercise Name quadraped cat cow and abdominal bracing PT-OP-T Assessment and Plan Start: 04/16/18 06:26 Freq: Status: Active Protocol: Document 07/04/18 14:21 [facility] (Rec: 07/04/18 14:25 [facility] [email or web address]) Physical Therapy Assessment Assessment Summary Assessment itzel is beginning to improve her hip alignment with decreased hip IR, she is noticing decreased complaints of urinary leakage Physical Therapy Plan Frequency and Duration Frequency of Treatment 2x/Week Duration of Treatment 8 weeks Plan of Care Start Date 05/23/18 Plan of Care End Date 07/19/18 Therapeutic Interventions Therapeutic Interventions Home Exercise Program Manual Therapy Neuromuscular Re-education Patient/Caregiver Education Self-Care/Home Management Soft Tissue Mobilization Therapeutic Exercises Modalities Biofeedback Cold Pack/Ice Massage Next Visit Focus/Plan Next Note Type Progress Note Next Visit Plan reassess pelvic floor strength with manual assessment next visit
--- NOTE | 2018-07-10 17:54 | PT.OTN ---
Current Diagnoses Patellofemoral disorders, left knee (07/10/18) Other specified disorders of muscle (07/10/18) Physical Therapy Treatment Note PT-OP-A Visit Information Start: 04/16/18 06:26 Freq: Status: Active Protocol: Document 07/10/18 17:50 [facility] (Rec: 07/10/18 17:52 [facility] [email or web address]) Out-Patient Physical Therapy Visit Information Visit Information Visit Type Treatment Note Visit Start Time 09:00 Visit Stop Time 09:45 Total Visit Minutes 45 Visit Number 10 Evaluation Information Evaluation Date 04/12/18 PT-OP-B Current Condition Start: 04/16/18 06:26 Freq: Status: Active Protocol: Document 04/12/18 09:45 [facility] (Rec: 04/16/18 06:49 [facility] [email or web address]) Current Condition History of Current Condition Onset Date symptoms increased after her second baby December 2016 Current Complaints urinary incontinence and knee pain L>R History of Current Condition Itzel is a 23 year old female with history of bilateral knee pain L >R that began in highschool and limited her ability to engage in PE and sports activities. She has had two vaginal deliveries in January and December 2016. She notes since that time she has experienced urinary leakage that occurs frequently 2-3 times per day. Treatment Goals Patient/Caregiver Goals Itzel would like to decrease her knee pain allowing her to run and improve strength of her pelvic floor to prevent urinary leakage PT-OP-C Subjective Start: 04/16/18 06:26 Freq: Status: Active Protocol: Document 07/10/18 17:50 [facility] (Rec: 07/10/18 17:52 [facility] [email or web address]) OP-PT Subjective Patient Comments Patient Comments Itzel continues to note improvements with her knees PT-OP-I Pelvic Floor Start: 04/16/18 06:26 Freq: Status: Active Protocol: Document 05/23/18 10:59 [facility] (Rec: 05/23/18 11:12 [facility] [email or web address]) Pelvic Floor Assessment Urine Pelvic Floor Surgery No Urinary Symptoms Urge Sensation Leakage Size Small Leakage Cause Cough Exercise Lifting Sneeze Urge Leaks Per Day 2-3 Nocturia wakes 1-2 Urine Pad Type Panty Liner SEMG (uV) Baseline 2 10 Second Contraction 10.2 Recruitment Pattern Good Relaxation Fair Stability of Hold Fair SEMG Stability of Rest Fair Contraction Ability Voluntary Contraction Moderate Voluntary Relaxation Weak Manual Muscle Testing Left 3 Manual Muscle Testing Right 3 Manual Muscle Testing Anterior 3 Manual Muscle Testing Posterior 4 Muscle Endurance (Seconds) 5 Comments Pelvic Floor Comments improving strength of the pelvic floor and improved resting tone PT-OP-J Posture/Palpation/Skin Start: 04/16/18 06:26 Freq: Status: Active Protocol: Document 04/12/18 09:45 [facility] (Rec: 04/16/18 06:49 [facility] [email or web address]) Posture Evaluation Comments Posture Comments The patient stands with hip IR bilaterally, she walks with a gluteus medius drop Palpation Assessment Location Two Palpation Location left knee patella tendon Palpation Findings Tenderness Palpation Details tenderness to the patella tendon and distally under the patella One Palpation Location ITB Palpation Findings Soft Tissue Tightness Palpation Details Tightness of the ITB distal attachments bilaterally PT-OP-K Range of Motion Start: 04/16/18 06:26 Freq: Status: Active Protocol: Document 04/12/18 09:45 [facility] (Rec: 04/16/18 06:49 [facility] [email or web address]) Hip Goniometric Range of Motion Hip ROM Limitations Hip ROM Limitations Soft Tissue Tightness Muscle Weakness Comments limited in hip ER due to soft tissue tightness and gluteus medius weakness the hips like to be in a IR position at rest Knee Goniometric Range of Motion Knee Measured in Degrees Right Knee ROM WFL Yes Left Knee ROM WFL Yes PT-OP-M Strength Start: 04/16/18 06:26 Freq: Status: Active Protocol: Document 05/23/18 10:59 [facility] (Rec: 05/23/18 11:12 [facility] [email or web address]) Knee Strength Knee Manual Muscle Testing Right Flexion (S2) 4+ Good+ Extension (L3) 4+ Good+ Left Flexion (S2) 4 Good Extension (L3) 4 Good PT-OP-Q Treatments Start: 04/16/18 06:26 Freq: Status: Active Protocol: Document 07/10/18 17:50 [facility] (Rec: 07/10/18 17:52 [facility] [email or web address]) Cardio Equipment Bicycle (Upright) Duration (Minutes) 5 Gym Equipment Shuttle Recovery Bilateral Squats Details shuttle squats Reps/Time 62 # double leg 3x10 25# single leg 3 x 10 Therapeutic Exercises Supine Exercises 3 Supine Exercise Name pelvic floor quick contractions 2 Supine Exercise Name rollouts with theraband Reps/Minutes 2x10 1 Supine Exercise Name pelvic floor long holds Reps/Minutes 10 second holds 10 second relaxation Other Exercises 6 Other Exercise Name side steps over the bosu ball 5 Other Exercise Name piriformis stretch 4 Other Exercise Name prone over the ball hip extension and abduction Reps/Minutes 2x10 reps 3 Other Exercise Name hamstring stretch B 2 Other Exercise Name side steps in mini squat with theraband 1 Other Exercise Name quadraped cat cow and abdominal bracing PT-OP-T Assessment and Plan Start: 04/16/18 06:26 Freq: Status: Active Protocol: Document 07/10/18 17:52 [facility] (Rec: 07/10/18 17:54 [facility] [email or web address]) Physical Therapy Assessment Assessment Summary Assessment Itzel continues to show a increase in strength. I began dynamic strengthening today on the BOSU ball and she tolerated with well. She still requires a few verbal cues for knee placement Physical Therapy Plan Next Visit Focus/Plan Next Note Type Progress Note Next Visit Plan reassess pelvic floor next visit as we did not do it today
--- NOTE | 2018-07-19 12:52 | PT.OTN ---
Current Diagnoses Patellofemoral disorders, left knee (07/19/18) Other specified disorders of muscle (07/19/18) Physical Therapy Treatment Note PT-OP-A Visit Information Start: 04/16/18 06:26 Freq: Status: Active Protocol: Document 07/19/18 12:38 [facility] (Rec: 07/19/18 12:52 [facility] [email or web address]) Out-Patient Physical Therapy Visit Information Visit Information Visit Type Progress Note Visit Start Time 10:30 Visit Stop Time 11:15 Total Visit Minutes 45 Visit Number 11 Evaluation Information Evaluation Date 04/12/18 PT-OP-B Current Condition Start: 04/16/18 06:26 Freq: Status: Active Protocol: Document 04/12/18 09:45 [facility] (Rec: 04/16/18 06:49 [facility] [email or web address]) Current Condition History of Current Condition Onset Date symptoms increased after her second baby December 2016 Current Complaints urinary incontinence and knee pain L>R History of Current Condition Itzel is a 23 year old female with history of bilateral knee pain L >R that began in highschool and limited her ability to engage in PE and sports activities. She has had two vaginal deliveries in January and December 2016. She notes since that time she has experienced urinary leakage that occurs frequently 2-3 times per day. Treatment Goals Patient/Caregiver Goals Itzel would like to decrease her knee pain allowing her to run and improve strength of her pelvic floor to prevent urinary leakage PT-OP-C Subjective Start: 04/16/18 06:26 Freq: Status: Active Protocol: Document 07/19/18 12:38 [facility] (Rec: 07/19/18 12:52 [facility] [email or web address]) OP-PT Subjective Patient Comments Patient Comments itzel reports she is doing better with her knees overall. She can tell she is stronger with her pelvic floor but as she gets close to her menstrual cycle she has more instability. She is still wearing a pad but it is staying dry for the most part PT-OP-I Pelvic Floor Start: 04/16/18 06:26 Freq: Status: Active Protocol: Document 05/23/18 10:59 [facility] (Rec: 05/23/18 11:12 [facility] [email or web address]) Pelvic Floor Assessment Urine Pelvic Floor Surgery No Urinary Symptoms Urge Sensation Leakage Size Small Leakage Cause Cough Exercise Lifting Sneeze Urge Leaks Per Day 2-3 Nocturia wakes 1-2 Urine Pad Type Panty Liner SEMG (uV) Baseline 2 10 Second Contraction 10.2 Recruitment Pattern Good Relaxation Fair Stability of Hold Fair SEMG Stability of Rest Fair Contraction Ability Voluntary Contraction Moderate Voluntary Relaxation Weak Manual Muscle Testing Left 3 Manual Muscle Testing Right 3 Manual Muscle Testing Anterior 3 Manual Muscle Testing Posterior 4 Muscle Endurance (Seconds) 5 Comments Pelvic Floor Comments improving strength of the pelvic floor and improved resting tone PT-OP-J Posture/Palpation/Skin Start: 04/16/18 06:26 Freq: Status: Active Protocol: Document 04/12/18 09:45 [facility] (Rec: 04/16/18 06:49 [facility] [email or web address]) Posture Evaluation Comments Posture Comments The patient stands with hip IR bilaterally, she walks with a gluteus medius drop Palpation Assessment Location Two Palpation Location left knee patella tendon Palpation Findings Tenderness Palpation Details tenderness to the patella tendon and distally under the patella One Palpation Location ITB Palpation Findings Soft Tissue Tightness Palpation Details Tightness of the ITB distal attachments bilaterally PT-OP-K Range of Motion Start: 04/16/18 06:26 Freq: Status: Active Protocol: Document 04/12/18 09:45 [facility] (Rec: 04/16/18 06:49 [facility] [email or web address]) Hip Goniometric Range of Motion Hip ROM Limitations Hip ROM Limitations Soft Tissue Tightness Muscle Weakness Comments limited in hip ER due to soft tissue tightness and gluteus medius weakness the hips like to be in a IR position at rest Knee Goniometric Range of Motion Knee Measured in Degrees Right Knee ROM WFL Yes Left Knee ROM WFL Yes PT-OP-M Strength Start: 04/16/18 06:26 Freq: Status: Active Protocol: Document 05/23/18 10:59 [facility] (Rec: 05/23/18 11:12 [facility] [email or web address]) Knee Strength Knee Manual Muscle Testing Right Flexion (S2) 4+ Good+ Extension (L3) 4+ Good+ Left Flexion (S2) 4 Good Extension (L3) 4 Good PT-OP-Q Treatments Start: 04/16/18 06:26 Freq: Status: Active Protocol: Document 07/19/18 12:38 [facility] (Rec: 07/19/18 12:52 [facility] [email or web address]) Cardio Equipment Bicycle (Upright) Duration (Minutes) 5 Gym Equipment Shuttle Recovery Bilateral Squats Details shuttle squats Reps/Time 62 # double leg 3x10 25# single leg 3 x 10 Therapeutic Exercises Supine Exercises 3 Supine Exercise Name pelvic floor quick contractions 2 Supine Exercise Name rollouts with theraband Reps/Minutes 2x10 1 Supine Exercise Name pelvic floor long holds Reps/Minutes 10 second holds 10 second relaxation Standing Exercises 3 Standing Exercise Name standing hip hikes 2 Standing Exercise Name standing lunges Comments holding onto cable straps for support 1 Standing Exercise Name squats Comments holding on to cable straps Other Exercises 6 Other Exercise Name side steps over the bosu ball 5 Other Exercise Name piriformis stretch 4 Other Exercise Name prone over the ball hip extension and abduction Reps/Minutes 2x10 reps 3 Other Exercise Name hamstring stretch B 2 Other Exercise Name side steps in mini squat with theraband 1 Other Exercise Name quadraped cat cow and abdominal bracing PT-OP-T Assessment and Plan Start: 04/16/18 06:26 Freq: Status: Active Protocol: Document 07/19/18 12:38 [facility] (Rec: 07/19/18 12:52 [facility] [email or web address]) Physical Therapy Assessment Progress Towards Goals Progress Towards Goals Progressing Toward Goals Assessment Summary Assessment Itzel is making great overall progress with physical therapy. Her knee pain is reducing and she is only wearing one pad a day which is usually dry now. She still experiences some leakage close to her menstrual cycle but leakage has been reduced overall. We have started dynamic stabilization exercises for her core , knee, and hips and she is tolerating this well. She would benefit from continued PT Physical Therapy Plan Frequency and Duration Frequency of Treatment 2x/Week Duration of Treatment 8 weeks Plan of Care Start Date 07/19/18 Plan of Care End Date 09/13/18 Therapeutic Interventions Therapeutic Interventions Home Exercise Program Manual Therapy Neuromuscular Re-education Patient/Caregiver Education Self-Care/Home Management Soft Tissue Mobilization Therapeutic Exercises Modalities Biofeedback Cold Pack/Ice Massage Next Visit Focus/Plan Next Note Type Treatment Note Next Visit Plan continue with increasing dynamic stability
--- NOTE | 2018-07-25 09:56 | PT.OTN ---
Current Diagnoses Patellofemoral disorders, left knee (07/24/18) Other specified disorders of muscle (07/24/18) Physical Therapy Treatment Note PT-OP-A Visit Information Start: 04/16/18 06:26 Freq: Status: Active Protocol: Document 07/24/18 09:09 [facility] (Rec: 07/24/18 09:09 [facility] [email or web address]) Out-Patient Physical Therapy Visit Information Visit Information Visit Type Treatment Note Visit Start Time 09:00 Visit Stop Time 09:45 Total Visit Minutes 45 Visit Number 12 PT-OP-B Current Condition Start: 04/16/18 06:26 Freq: Status: Active Protocol: Document 04/12/18 09:45 [facility] (Rec: 04/16/18 06:49 [facility] [email or web address]) Current Condition History of Current Condition Onset Date symptoms increased after her second baby December 2016 Current Complaints urinary incontinence and knee pain L>R History of Current Condition Itzel is a 23 year old female with history of bilateral knee pain L >R that began in highschool and limited her ability to engage in PE and sports activities. She has had two vaginal deliveries in January and December 2016. She notes since that time she has experienced urinary leakage that occurs frequently 2-3 times per day. Treatment Goals Patient/Caregiver Goals Itzel would like to decrease her knee pain allowing her to run and improve strength of her pelvic floor to prevent urinary leakage PT-OP-C Subjective Start: 04/16/18 06:26 Freq: Status: Active Protocol: Document 07/24/18 09:09 [facility] (Rec: 07/24/18 09:09 [facility] [email or web address]) OP-PT Subjective Patient Comments Patient Comments Doing pretty good overall just cramping today from her cycle . PT-OP-I Pelvic Floor Start: 04/16/18 06:26 Freq: Status: Active Protocol: Document 05/23/18 10:59 [facility] (Rec: 05/23/18 11:12 [facility] [email or web address]) Pelvic Floor Assessment Urine Pelvic Floor Surgery No Urinary Symptoms Urge Sensation Leakage Size Small Leakage Cause Cough Exercise Lifting Sneeze Urge Leaks Per Day 2-3 Nocturia wakes 1-2 Urine Pad Type Panty Liner SEMG (uV) Baseline 2 10 Second Contraction 10.2 Recruitment Pattern Good Relaxation Fair Stability of Hold Fair SEMG Stability of Rest Fair Contraction Ability Voluntary Contraction Moderate Voluntary Relaxation Weak Manual Muscle Testing Left 3 Manual Muscle Testing Right 3 Manual Muscle Testing Anterior 3 Manual Muscle Testing Posterior 4 Muscle Endurance (Seconds) 5 Comments Pelvic Floor Comments improving strength of the pelvic floor and improved resting tone PT-OP-J Posture/Palpation/Skin Start: 04/16/18 06:26 Freq: Status: Active Protocol: Document 04/12/18 09:45 [facility] (Rec: 04/16/18 06:49 [facility] [email or web address]) Posture Evaluation Comments Posture Comments The patient stands with hip IR bilaterally, she walks with a gluteus medius drop Palpation Assessment Location Two Palpation Location left knee patella tendon Palpation Findings Tenderness Palpation Details tenderness to the patella tendon and distally under the patella One Palpation Location ITB Palpation Findings Soft Tissue Tightness Palpation Details Tightness of the ITB distal attachments bilaterally PT-OP-K Range of Motion Start: 04/16/18 06:26 Freq: Status: Active Protocol: Document 04/12/18 09:45 [facility] (Rec: 04/16/18 06:49 [facility] [email or web address]) Hip Goniometric Range of Motion Hip ROM Limitations Hip ROM Limitations Soft Tissue Tightness Muscle Weakness Comments limited in hip ER due to soft tissue tightness and gluteus medius weakness the hips like to be in a IR position at rest Knee Goniometric Range of Motion Knee Measured in Degrees Right Knee ROM WFL Yes Left Knee ROM WFL Yes PT-OP-M Strength Start: 04/16/18 06:26 Freq: Status: Active Protocol: Document 05/23/18 10:59 [facility] (Rec: 05/23/18 11:12 [facility] [email or web address]) Knee Strength Knee Manual Muscle Testing Right Flexion (S2) 4+ Good+ Extension (L3) 4+ Good+ Left Flexion (S2) 4 Good Extension (L3) 4 Good PT-OP-Q Treatments Start: 04/16/18 06:26 Freq: Status: Active Protocol: Document 07/24/18 09:54 [facility] (Rec: 07/25/18 09:56 [facility] [email or web address]) Cardio Equipment Bicycle (Upright) Duration (Minutes) 5 Gym Equipment Shuttle Recovery Bilateral Squats Details shuttle squats Reps/Time 62 # double leg 3x10 25# single leg 3 x 10 Therapeutic Exercises Sidelying Exercises 3 Sidelying Exercise Name manual quadracep stretch in sidelying 2 Sidelying Exercise Name sidelying hip circles 1 Sidelying Exercise Name sidelying clam shells and sidelying hip abduction Side bilateral Reps/Minutes 3 x 10 Comments with theraband Standing Exercises 3 Standing Exercise Name standing hip hikes 2 Standing Exercise Name standing lunges Comments holding onto cable straps for support 1 Standing Exercise Name squats Comments holding on to cable straps Other Exercises 6 Other Exercise Name side steps over the bosu ball 5 Other Exercise Name piriformis stretch 4 Other Exercise Name prone over the ball hip extension and abduction Reps/Minutes 2x10 reps 3 Other Exercise Name hamstring stretch B 2 Other Exercise Name side steps in mini squat with theraband 1 Other Exercise Name quadraped cat cow and abdominal bracing PT-OP-T Assessment and Plan Start: 04/16/18 06:26 Freq: Status: Active Protocol: Document 07/24/18 09:[facility] (Rec: 07/25/18 09:56 [facility] [email or web address] Physical Therapy Assessment Assessment Summary Assessment Continues to show progress and decreased knee internal rotation Physical Therapy Plan Next Visit Focus/Plan Next Note Type Treatment Note Next Visit Plan continue with increasing dynamic stability
--- NOTE | 2018-08-09 14:00 | PT.OTN ---
Current Diagnoses Patellofemoral disorders, left knee (08/09/18) Other specified disorders of muscle (08/09/18) Physical Therapy Treatment Note PT-OP-A Visit Information Start: 04/16/18 06:26 Freq: Status: Active Protocol: Document 08/09/18 13:53 [facility] (Rec: 08/09/18 14:00 [facility] [email or web address]) Out-Patient Physical Therapy Visit Information Visit Information Visit Type Treatment Note Visit Start Time 10:30 Visit Stop Time 11:15 Total Visit Minutes 45 Visit Number 13 Evaluation Information Evaluation Date 04/12/18 PT-OP-B Current Condition Start: 04/16/18 06:26 Freq: Status: Active Protocol: Document 04/12/18 09:45 [facility] (Rec: 04/16/18 06:49 [facility] [email or web address]) Current Condition History of Current Condition Onset Date symptoms increased after her second baby December 2016 Current Complaints urinary incontinence and knee pain L>R History of Current Condition Itzel is a 23 year old female with history of bilateral knee pain L >R that began in highschool and limited her ability to engage in PE and sports activities. She has had two vaginal deliveries in January and December 2016. She notes since that time she has experienced urinary leakage that occurs frequently 2-3 times per day. Treatment Goals Patient/Caregiver Goals Itzel would like to decrease her knee pain allowing her to run and improve strength of her pelvic floor to prevent urinary leakage PT-OP-C Subjective Start: 04/16/18 06:26 Freq: Status: Active Protocol: Document 08/09/18 13:53 [facility] (Rec: 08/09/18 14:00 [facility] [email or web address]) OP-PT Subjective Patient Comments Patient Comments pelvic floor symptoms are doing pretty good overall. She notes soreness in her joints today and can tell it is cold outside PT-OP-I Pelvic Floor Start: 04/16/18 06:26 Freq: Status: Active Protocol: Document 05/23/18 10:59 [facility] (Rec: 05/23/18 11:12 [facility] [email or web address]) Pelvic Floor Assessment Urine Pelvic Floor Surgery No Urinary Symptoms Urge Sensation Leakage Size Small Leakage Cause Cough Exercise Lifting Sneeze Urge Leaks Per Day 2-3 Nocturia wakes 1-2 Urine Pad Type Panty Liner SEMG (uV) Baseline 2 10 Second Contraction 10.2 Recruitment Pattern Good Relaxation Fair Stability of Hold Fair SEMG Stability of Rest Fair Contraction Ability Voluntary Contraction Moderate Voluntary Relaxation Weak Manual Muscle Testing Left 3 Manual Muscle Testing Right 3 Manual Muscle Testing Anterior 3 Manual Muscle Testing Posterior 4 Muscle Endurance (Seconds) 5 Comments Pelvic Floor Comments improving strength of the pelvic floor and improved resting tone PT-OP-J Posture/Palpation/Skin Start: 04/16/18 06:26 Freq: Status: Active Protocol: Document 04/12/18 09:45 [facility] (Rec: 04/16/18 06:49 [facility] [email or web address]) Posture Evaluation Comments Posture Comments The patient stands with hip IR bilaterally, she walks with a gluteus medius drop Palpation Assessment Location Two Palpation Location left knee patella tendon Palpation Findings Tenderness Palpation Details tenderness to the patella tendon and distally under the patella One Palpation Location ITB Palpation Findings Soft Tissue Tightness Palpation Details Tightness of the ITB distal attachments bilaterally PT-OP-K Range of Motion Start: 04/16/18 06:26 Freq: Status: Active Protocol: Document 04/12/18 09:45 [facility] (Rec: 04/16/18 06:49 [facility] [email or web address]) Hip Goniometric Range of Motion Hip ROM Limitations Hip ROM Limitations Soft Tissue Tightness Muscle Weakness Comments limited in hip ER due to soft tissue tightness and gluteus medius weakness the hips like to be in a IR position at rest Knee Goniometric Range of Motion Knee Measured in Degrees Right Knee ROM WFL Yes Left Knee ROM WFL Yes PT-OP-M Strength Start: 04/16/18 06:26 Freq: Status: Active Protocol: Document 05/23/18 10:59 [facility] (Rec: 05/23/18 11:12 [facility] [email or web address]) Knee Strength Knee Manual Muscle Testing Right Flexion (S2) 4+ Good+ Extension (L3) 4+ Good+ Left Flexion (S2) 4 Good Extension (L3) 4 Good PT-OP-Q Treatments Start: 04/16/18 06:26 Freq: Status: Active Protocol: Document 08/09/18 13:53 [facility] (Rec: 08/09/18 14:00 [facility] [email or web address]) Cardio Equipment Bicycle (Upright) Duration (Minutes) 5 Therapeutic Exercises Sidelying Exercises 2 Sidelying Exercise Name sidelying hip circles 1 Sidelying Exercise Name sidelying clam shells and sidelying hip abduction Side bilateral Reps/Minutes 3 x 10 Comments with theraband Standing Exercises 2 Standing Exercise Name standing lunges Comments holding onto cable straps for support 1 Standing Exercise Name squats Comments holding on to cable straps Other Exercises 6 Other Exercise Name side steps over the bosu ball 5 Other Exercise Name piriformis stretch 1 Other Exercise Name quadraped cat cow and abdominal bracing PT-OP-T Assessment and Plan Start: 04/16/18 06:26 Freq: Status: Active Protocol: Document 08/09/18 13:53 [facility] (Rec: 08/09/18 14:00 [facility] [email or web address]) Physical Therapy Assessment Assessment Summary Assessment much improved balance with step ups and step overs on BOSU ball, no balance sticks needed today Physical Therapy Plan Frequency and Duration Frequency of Treatment 2x/Week Duration of Treatment 8 weeks Plan of Care Start Date 07/19/18 Plan of Care End Date 09/13/18 Therapeutic Interventions Therapeutic Interventions Home Exercise Program Manual Therapy Neuromuscular Re-education Patient/Caregiver Education Self-Care/Home Management Soft Tissue Mobilization Therapeutic Exercises Modalities Biofeedback Cold Pack/Ice Massage Next Visit Focus/Plan Next Note Type Treatment Note Next Visit Plan review all established exercises as this next visit is [facility] last scheduled visit
--- NOTE | 2018-08-15 13:41 | PT.OPDS ---
Current Diagnoses Patellofemoral disorders, left knee (08/15/18) Other specified disorders of muscle (08/15/18) Provider Visit Care Team Role Provider Type Amy Arvizu MD Family Provider Physician Primary Care Provider Specialty: SENIOR SQL DEVELOPER Address: [address] [place] [address], [id number] Email: [email or web address] Jeremie Moore MD Attending Provider Physician Specialty: Wound Care Address: [address] [place] [address], [phone] Email: [email or web address] Visit Number Visit Number 14 Discharge Summary PT-OP-B Current Condition Start: 04/16/18 06:26 Freq: Status: Active Protocol: Document 04/12/18 09:45 [facility] (Rec: 04/16/18 06:49 [facility] [email or web address]) Current Condition History of Current Condition Onset Date symptoms increased after her second baby December 2016 Current Complaints urinary incontinence and knee pain L>R History of Current Condition Itzel is a 23 year old female with history of bilateral knee pain L >R that began in highschool and limited her ability to engage in PE and sports activities. She has had two vaginal deliveries in January and December 2016. She notes since that time she has experienced urinary leakage that occurs frequently 2-3 times per day. Treatment Goals Patient/Caregiver Goals Itzel would like to decrease her knee pain allowing her to run and improve strength of her pelvic floor to prevent urinary leakage PT-OP-C Subjective Start: 04/16/18 06:26 Freq: Status: Active Protocol: Document 08/15/18 13:25 [facility] (Rec: 08/15/18 13:41 [facility] [email or web address]) OP-PT Subjective Patient Comments Patient Comments Itzel reports that overall her symptoms of pelvic floor weakness have improved and she has decreased complaints of leakage. She does have more instability near her menstrual cycle and can feel today that her right hip is sore and she is not sure what irritated it , if maybe she slept wrong. PT-OP-I Pelvic Floor Start: 04/16/18 06:26 Freq: Status: Active Protocol: Document 08/15/18 13:25 [facility] (Rec: 08/15/18 13:41 [facility] [email or web address]) Pelvic Floor Assessment Urine Pelvic Floor Surgery No Leaks Per Day 0-1 SEMG (uV) Baseline 1 10 Second Contraction 17.5 Recruitment Pattern Good Relaxation Good Stability of Hold Good SEMG Stability of Rest Good Contraction Ability Voluntary Contraction Moderate Voluntary Relaxation Moderate Manual Muscle Testing Left 4 Manual Muscle Testing Right 4 Manual Muscle Testing Anterior 4 Manual Muscle Testing Posterior 4 Muscle Endurance (Seconds) 10 Number of Quick Contractions In 10 10 Seconds Comments Pelvic Floor Comments good overall improvement of pelvic floor strength PT-OP-J Posture/Palpation/Skin Start: 04/16/18 06:26 Freq: Status: Active Protocol: Document 04/12/18 09:45 [facility] (Rec: 04/16/18 06:49 [facility] [email or web address]) Posture Evaluation Comments Posture Comments The patient stands with hip IR bilaterally, she walks with a gluteus medius drop Palpation Assessment Location Two Palpation Location left knee patella tendon Palpation Findings Tenderness Palpation Details tenderness to the patella tendon and distally under the patella One Palpation Location ITB Palpation Findings Soft Tissue Tightness Palpation Details Tightness of the ITB distal attachments bilaterally PT-OP-K Range of Motion Start: 04/16/18 06:26 Freq: Status: Active Protocol: Document 04/12/18 09:45 [facility] (Rec: 04/16/18 06:49 [facility] [email or web address]) Hip Goniometric Range of Motion Hip ROM Limitations Hip ROM Limitations Soft Tissue Tightness Muscle Weakness Comments limited in hip ER due to soft tissue tightness and gluteus medius weakness the hips like to be in a IR position at rest Knee Goniometric Range of Motion Knee Measured in Degrees Right Knee ROM WFL Yes Left Knee ROM WFL Yes PT-OP-M Strength Start: 04/16/18 06:26 Freq: Status: Active Protocol: Document 05/23/18 10:59 [facility] (Rec: 05/23/18 11:12 [facility] [email or web address]) Knee Strength Knee Manual Muscle Testing Right Flexion (S2) 4+ Good+ Extension (L3) 4+ Good+ Left Flexion (S2) 4 Good Extension (L3) 4 Good PT-OP-T Assessment and Plan Start: 04/16/18 06:26 Freq: Status: Active Protocol: Document 08/15/18 13:25 [facility] (Rec: 08/15/18 13:41 [facility] [email or web address]) Physical Therapy Assessment Progress Towards Goals Progress Towards Goals Progressing Toward Goals Assessment Summary Assessment Itzel has made good overall progress with physical therapy . She was referred for pelvic floor weakness with urinary incontinence and bilateral knee pain. She was initially very weak with her hip ER and tended to insulator helper hip IR. Treatment has focused on core stability as well as strengthening the gluteals and hips for improved knee alignment. Itzel has done well with PT and has shown improved strength with both her pelvic floor and hip and gluteal strengthening. She tends to experience wide spread joint pain in several of her joints and it often limits her follow through with her home routine. I have given her gentle exercises as well to gently stretch prior to her exercises. She may benefit on a follow up or blood testing as to her wide spread joint pain she experiences. She will be following up with Dr. Moore. Physical Therapy Plan Discharge Physical Therapy Discharge Comments The patient has completed her current program in PT and will be discharged at this time.
--- NOTE | 2018-08-15 13:41 | PT.OPDS ---
Current Diagnoses Patellofemoral disorders, left knee (08/15/18) Other specified disorders of muscle (08/15/18) Provider Visit Care Team Role Provider Type Amy Arvizu MD Family Provider Physician Primary Care Provider Specialty: WIRE STEWARD Address: [address] [place] [address], [address] Email: [email or web address] Jeremie Moore MD Attending Provider Physician Specialty: Wound Care Address: [address] [place] [address], [id number] Email: [email or web address] Visit Number Visit Number 14 Discharge Summary PT-OP-B Current Condition Start: 04/16/18 06:26 Freq: Status: Active Protocol: Document 04/12/18 09:45 AMH (Rec: 04/16/18 06:49 AMH [email or web address]) Current Condition History of Current Condition Onset Date symptoms increased after her second baby December 2016 Current Complaints urinary incontinence and knee pain L>R History of Current Condition Itzel is a 23 year old female with history of bilateral knee pain L >R that began in highschool and limited her ability to engage in PE and sports activities. She has had two vaginal deliveries in January and December 2016. She notes since that time she has experienced urinary leakage that occurs frequently 2-3 times per day. Treatment Goals Patient/Caregiver Goals Itzel would like to decrease her knee pain allowing her to run and improve strength of her pelvic floor to prevent urinary leakage PT-OP-C Subjective Start: 04/16/18 06:26 Freq: Status: Active Protocol: Document 08/15/18 13:25 AMH (Rec: 08/15/18 13:41 AMH [email or web address]) OP-PT Subjective Patient Comments Patient Comments Itzel reports that overall her symptoms of pelvic floor weakness have improved and she has decreased complaints of leakage. She does have more instability near her menstrual cycle and can feel today that her right hip is sore and she is not sure what irritated it , if maybe she slept wrong. PT-OP-I Pelvic Floor Start: 04/16/18 06:26 Freq: Status: Active Protocol: Document 08/15/18 13:25 AMH (Rec: 08/15/18 13:41 AMH [email or web address]) Pelvic Floor Assessment Urine Pelvic Floor Surgery No Leaks Per Day 0-1 SEMG (uV) Baseline 1 10 Second Contraction 17.5 Recruitment Pattern Good Relaxation Good Stability of Hold Good SEMG Stability of Rest Good Contraction Ability Voluntary Contraction Moderate Voluntary Relaxation Moderate Manual Muscle Testing Left 4 Manual Muscle Testing Right 4 Manual Muscle Testing Anterior 4 Manual Muscle Testing Posterior 4 Muscle Endurance (Seconds) 10 Number of Quick Contractions In 10 10 Seconds Comments Pelvic Floor Comments good overall improvement of pelvic floor strength PT-OP-J Posture/Palpation/Skin Start: 04/16/18 06:26 Freq: Status: Active Protocol: Document 04/12/18 09:45 AMH (Rec: 04/16/18 06:49 AMH [email or web address]) Posture Evaluation Comments Posture Comments The patient stands with hip IR bilaterally, she walks with a gluteus medius drop Palpation Assessment Location Two Palpation Location left knee patella tendon Palpation Findings Tenderness Palpation Details tenderness to the patella tendon and distally under the patella One Palpation Location ITB Palpation Findings Soft Tissue Tightness Palpation Details Tightness of the ITB distal attachments bilaterally PT-OP-K Range of Motion Start: 04/16/18 06:26 Freq: Status: Active Protocol: Document 04/12/18 09:45 AMH (Rec: 04/16/18 06:49 AMH [email or web address]) Hip Goniometric Range of Motion Hip ROM Limitations Hip ROM Limitations Soft Tissue Tightness Muscle Weakness Comments limited in hip ER due to soft tissue tightness and gluteus medius weakness the hips like to be in a IR position at rest Knee Goniometric Range of Motion Knee Measured in Degrees Right Knee ROM WFL Yes Left Knee ROM WFL Yes PT-OP-M Strength Start: 04/16/18 06:26 Freq: Status: Active Protocol: Document 05/23/18 10:59 AMH (Rec: 05/23/18 11:12 AMH [email or web address]) Knee Strength Knee Manual Muscle Testing Right Flexion (S2) 4+ Good+ Extension (L3) 4+ Good+ Left Flexion (S2) 4 Good Extension (L3) 4 Good PT-OP-T Assessment and Plan Start: 04/16/18 06:26 Freq: Status: Active Protocol: Document 08/15/18 13:25 AMH (Rec: 08/15/18 13:41 AMH [email or web address]) Physical Therapy Assessment Progress Towards Goals Progress Towards Goals Progressing Toward Goals Assessment Summary Assessment Itzel has made good overall progress with physical therapy . She was referred for pelvic floor weakness with urinary incontinence and bilateral knee pain. She was initially very weak with her hip ER and tended to flight engineer performance qualified hip IR. Treatment has focused on core stability as well as strengthening the gluteals and hips for improved knee alignment. Itzel has done well with PT and has shown improved strength with both her pelvic floor and hip and gluteal strengthening. She tends to experience wide spread joint pain in several of her joints and it often limits her follow through with her home routine. I have given her gentle exercises as well to gently stretch prior to her exercises. She may benefit on a follow up or blood testing as to her wide spread joint pain she experiences. She will be following up with Dr. Moore. Physical Therapy Plan Discharge Physical Therapy Discharge Comments The patient has completed her current program in PT and will be discharged at this time.
== END 2018-08-16 11:18 ==
LOC: PHYS 10:45
PROVIDERS: Family Provider Specialist; PCP Specialist; Visit Provider Internal Medicine
DX: M22.2X2 Patellofemoral disorders, left knee (principal); M62.89 Other specified disorders of muscle
CPT/HCPCS: 97110; 97112; 97140; 97161

== ENCOUNTER 2018-11-12 04:10 | Emergency (ER) | payer OTHER, MEDICAID, SELFPAY ==
--- NOTE | 2018-11-12 04:21 | ED_ITS ---
HPI - General Adult General Chief complaint: Nausea/Vomiting/Diarrhea Stated complaint: thinks she has the flu Time Seen by Provider: 11/12/18 04:11 Source: patient Mode of arrival: ambulatory Limitations: no limitations History of Present Illness HPI narrative: Otherwise healthy 23-year-old female here for evaluation of nausea vomiting and diarrhea. She states that it started 0900 hr last evening. She does have a son that has had some diarrhea over the past couple days. She states she is having some abdominal cramping but no other abdominal pain. No blood in her stool. No blood in the vomit. No urinary symptoms. No vaginal bleeding. No recent travel. No recent antibiotics use. Has not tried anything for symptoms prior to arrival. States she gets very nauseous whenever she tries to drink anything. Related Data Previous Rx's Medication Instructions Recorded azithromycin [Zithromax] 250 mg PO QDAY #6 tab 09/01/17 norethindrone (contraceptive) 0.35 mg PO QDAY #3 pac 09/12/17 [Jessica] etonogestrel-ethinyl estradiol 1 vaginalrin VAG Q 3 WEEKS #3 each 03/05/18 0.12 mg -0.015 mg/24 hr vaginal ring ondansetron 4 mg PO Q6-8H PRN #14 tab 11/12/18 Allergies Allergy/AdvReac Type Severity Reaction Status Date / Time penicillin G [PENICILLIN G] Allergy Severe family Verified 11/12/18 04:29 history Penicillins [PENICILLINS] Allergy Unknown had family Verified 11/12/18 04:29 member with paralysis, refuses to take Review of Systems Constitutional Denies fever(s) Cardiovascular Denies chest pain and Denies dyspnea Respiratory Denies dyspnea Gastrointestinal Gastrointestinal: Reports abdominal pain, Reports change in stool character, Reports diarrhea, Reports nausea and Reports vomiting Genitourinary Denies dysuria Musculoskeletal Denies myalgias and Denies arthralgias Integumentary/Breasts Denies rash Hematologic/Lymphatic Comments: Not on anticoagulation PFSH Medical History Healthy adult (Acute) Surgical History No pertinent past surgical history (Acute) Social History marital status: lives independently: Yes Smoking Status: Never smoker Social History marital status: lives independently: Yes Smoking Status: Never smoker Exam Initial Vital Signs Initial Vital Signs: Vital Signs Temperature 98.3 F 11/12/18 04:24 Pulse Rate 123 H 11/12/18 04:24 Respiratory Rate 20 11/12/18 04:24 Blood Pressure 114/75 11/12/18 04:24 Pulse Oximetry 98 11/12/18 04:24 Const General: cooperative, well developed, well groomed and No acute distress Orientation: alert, awake and oriented x3 HENMT Head: normal to inspection and normocephalic Resp Effort & Inspection: normal respiratory effort Auscultation: clear to auscultation bilaterally Cardio Rate: tachycardic Rhythm: regular rhythm GI Inspection: non-distended Palpation: soft, No firm and tender Skin Lesions: no lesions Rashes: no rashes Neuro General: alert, awake and oriented x3 Extrem General: normal to inspection and capillary refill normal Psych Appearance: grossly normal and well kempt Course Orders Ordered: ED Orders 11/12/18 04:20 Influenza A and B by PCR Rapid Stat Discontinued Medications Sodium Chloride (Normal Saline 0.9%) 1,000 mls @ 1,000 mls/hr IV BOLUS ONE Stop: 11/12/18 05:23 Last Infusion: 11/12/18 05:36 Dose: 0 mls/hr Admin: 11/12/18 04:50 Dose: 1,000 mls/hr Ondansetron HCl (Zofran) 4 mg IV NOW ONE Stop: 11/12/18 04:25 Last Admin: 11/12/18 04:50 Dose: 4 mg Vital Signs - 8 hr 11/12/18 04:24 11/12/18 05:40 Temperature 98.3 F Pulse Rate 123 H 92 H Respiratory Rate 20 14 Blood Pressure 114/75 Blood Pressure [Left Arm] 120/68 Pulse Oximetry 98 99 Medical Decision Making Lab Data Lab results reviewed: Yes I reviewed the patient's lab results. Lab Results 11/12/18 Range/Units 04:20 Influenza A & B (PCR) Negative (Negative) MDM Narrative Medical decision making narrative: Patient states she feels much better after the fluids and Zofran. She was able to tolerate small amount of fluids and crackers. We discussed nausea vomiting and diarrhea. Will send her home with nausea medication. We discussed return precautions. She expressed understanding and agreement with plan Discharge Plan Departure Patient Disposition: Home Clinical Impression: Nausea and vomiting Qualifiers: Vomiting type: unspecified Vomiting Intractability: non-intractable Qualified Code(s): R11.2 - Nausea with vomiting, unspecified Diarrhea Qualifiers: Diarrhea type: unspecified type Qualified Code(s): R19.7 - Diarrhea, unspeci fied Instructions: Diarrhea, Nausea and Vomiting-Adult Activity Restrictions/Additional Instructions: Make sure your drinking small amounts of fluid over long periods of time. I would recommend a bland diet. Take the nausea medication as needed. Contact your primary care doctor for follow-up. Return to the emergency department for any new or worsening symptoms Prescriptions: New ondansetron 4 mg tablet,disintegrating 4 mg PO Q6-8H PRN (Reason: nausea and vomiting) Qty: 14 RF: 0 No Action azithromycin [Zithromax] 250 MG tablet 250 mg PO QDAY Qty: 6 RF: 0 norethindrone (contraceptive) [Jessica] 0.35 MG tablet 0.35 mg PO QDAY Qty: 3 RF: 3 etonogestrel-ethinyl estradiol [NuvaRing] 0.12-0.015 mg/24 hr ring 1 vaginalrin VAG Q 3 WEEKS Qty: 3 RF: 3 Referrals: Amy Arvizu MD [Primary Care Provider] -
[2018-11-12 04:24] VITALS: BP 114/75; PULSE 123; RESP 20; TEMP 36.8; O2SAT 98; BMI 20.1
[2018-11-12 04:45] LABS: Influenza A and B by PCR Rapid Negative (Negative)
[2018-11-12] MEDS: SODIUM CHLORIDE 0.9% 1,000 ML 1000 ML IV (04:50)
[2018-11-12] MEDS: ONDANSETRON 4 MG/2 ML INJ IV (04:50)
[2018-11-12 05:40] VITALS: BP 120/68; PULSE 92; RESP 14; O2SAT 99
[2018-11-12 06:22] VITALS: BP 114/66; PULSE 88; RESP 14; O2SAT 97
== END 2018-11-12 06:25 | disposition home or self-care (01) ==
PROVIDERS: Emergency Provider Emergency Medicine; Family Provider Specialist; PCP Specialist
DX: R11.2 Nausea with vomiting, unspecified (principal); R19.7 Diarrhea, unspecified
CPT/HCPCS: 36591; 87400; 96361; 96374; 99283; 99284; J2405

== ENCOUNTER → 2020-10-16 10:01 | Outpatient (CLI) | payer OTHER, SELFPAY ==
[2020-10-16] MEDS: COVID-19 VACC(MODERNA-1)/PF 100 MCG/0.5 ML VIAL IM (10:08)
== END ==
PROVIDERS: Family Provider Specialist; Visit Provider Internal Medicine
DX: Z23 Encounter for immunization (principal)
CPT/HCPCS: 0011A; 91301

== ENCOUNTER → 2020-11-13 09:57 | Outpatient (CLI) | payer OTHER, SELFPAY ==
[2020-11-13] MEDS: COVID-19 VACC #2, MRNA(MOD) 100 MCG/0.5 ML VIAL IM (10:03)
== END ==
PROVIDERS: Family Provider Specialist; Visit Provider Internal Medicine
DX: Z23 Encounter for immunization (principal)
CPT/HCPCS: 0012A; 91301

== ENCOUNTER → 2021-08-05 15:55 | Outpatient (ROUT) | payer OTHER, SELFPAY ==
[2021-08-05 16:58] LABS: COVID19 -Nasal RAPID Negative (Negative)
== END ==
PROVIDERS: Family Provider Specialist; Visit Provider Physician Assistant
DX: Z20.822 Contact with and (suspected) exposure to COVID-19 (principal)
CPT/HCPCS: 87635

== ENCOUNTER → 2022-12-01 17:22 | Outpatient (CLI) | payer OTHER, SELFPAY ==
[2022-12-01 18:46] LABS: Appearance Urine UA Clear; Bacteria Urine Few (2-10); Culture Indicated Urine Specimen Cultured; Mucus Urine 1+ (Negative); RBC Urine 1-5/HPF (0-5/HPF); Renal Epithelial Cells Urine 0-1/HPF (0-1/HPF); Squamous Epithelial Cell Urine 1-5 /HPF (0-5/HPF); Transitional Epi Cells Urine 1-5/HPF (0-5/HPF); WBC Urine 10-30/HPF (0-5/HPF)
[2022-12-01 18:47] LABS: Color Urine UA ORANGE
== END ==
PROVIDERS: Family Provider Specialist; PCP Family Medicine; Referring Provider Family Medicine; Visit Provider Family Medicine
DX: N39.0 Urinary tract infection, site not specified (principal)
CPT/HCPCS: 81001; 87086

== ENCOUNTER 2024-01-12 13:38 | Emergency (ER) | payer OTHER, SELFPAY ==
[2024-01-12 13:41] VITALS: BP 121/71; PULSE 97; RESP 18; TEMP 36.2; O2SAT 99; BMI 29.4
--- NOTE | 2024-01-12 14:35 | ED_ITS ---
HPI - Fever <Ingris Turk PA-C - Last Filed: 01/12/24 15:47> General Chief Complaint: Recheck/Abnormal Lab/Rx Stated Complaint: swelling on throat,difficulty swallowing Time Seen by Provider: 01/12/24 14:35 Source: patient Mode of arrival: Ambulatory History of Present Illness HPI Narrative: Patient is a 28-year-old female with strep pharyngitis diagnosed 2 days ago in the walk-in clinic presenting for evaluation of continued severe sore throat. She denies any difficulty breathing or difficulty swallowing her spit. She states that she is having trouble swallowing due to the pain. She reports that she has had chills and feeling of fever. She states her temperature went up to 102 yesterday. She denies cough. She states she is having difficulty doing saltwater gargles because of the pain in her throat. Related Data Home Medications Medication Instructions Recorded Confirmed buspirone 10 mg tablet 10 mg PO DAILY 10/02/23 01/10/24 hydroxyzine HCl 25 mg tablet 25 mg PO DAILY 10/02/23 01/10/24 Previous Rx's Medication Instructions Recorded etonogestrel 0.12 mg-ethinyl 1 vaginalrin vaginal Q 3 WEEKS #3 03/05/18 estradiol 0.015 mg/24 hr vaginal ea ring (NuvaRing) amoxicillin 500 mg capsule 500 mg PO BID #20 caps 01/10/24 Allergies Allergy/AdvReac Type Severity Reaction Status Date / Time penicillin G [PENICILLIN G] Allergy Severe family Verified 01/10/24 07:44 history Penicillins [PENICILLINS] Allergy Unknown had family Verified 01/10/24 07:44 member with paralysis, refuses to take Review of Systems <Ingris Turk PA-C - Last Filed: 01/12/24 15:47> Review of Systems Narrative: See HPI Patient History <Ingris Turk PA-C - Last Filed: 01/12/24 15:47> Medical History Healthy adult Surgical History No pertinent past surgical history Social History marital status: household members: spouse and children lives independently: Yes Smoking Status: Never smoker alcohol intake: current Smoking Status: Never smoker alcohol intake frequency: holidays/special occasions only Substance Use Type: does not use Exam <Ingris Turk PA-C - Last Filed: 01/12/24 15:47> Initial Vital Signs Initial Vital Signs: Vital Signs Temperature 97.2 F L 01/12/24 13:41 Pulse Rate 97 H 01/12/24 13:41 Respiratory Rate 18 01/12/24 13:41 Blood Pressure 121/71 01/12/24 13:41 Pulse Oximetry 99 01/12/24 13:41 Oxygen Delivery Method Room Air 01/12/24 13:41 GENERAL: 28 year old patient appears stated age. Well-developed patient, in no acute distress. Speaking in clear voice HEAD: Atraumatic. Normocephalic. EYES: Pupils equal round. No scleral icterus. No injection or drainage. ENT: Clear rhinorrhea present bilateral nares. Posterior oropharynx is erythematous, tonsils are swollen bilaterally with presence of exudates, airway is patent uvula is midline. No erythema or bulging noted in bilateral TMs, left TM appears to have some fluid present, but there was no evidence of infection. Nontender to mastoid, tragus or pinna palpation. NECK: Trachea midline. Non tender. Positive anterior cervical lymphadenopathy noted bilaterally. CARDIOVASCULAR: Regular rate and rhythm without murmurs, gallops, or rubs. RESPIRATORY: Clear to auscultation. Breath sounds equal bilaterally. No wheezes, rales, or rhonchi. NEURO: AOx3. SKIN: No rash or erythema of visible areas <Lyric Gee DO - Last Filed: 01/19/24 11:25> Initial Vital Signs Initial Vital Signs: Vital Signs Temperature 97.2 F L 01/12/24 13:41 Pulse Rate 97 H 01/12/24 13:41 Respiratory Rate 18 01/12/24 13:41 Blood Pressure 121/71 01/12/24 13:41 Pulse Oximetry 99 01/12/24 13:41 Oxygen Delivery Method Room Air 01/12/24 13:41 Course <Ingris Turk PA-C - Last Filed: 01/12/24 15:47> Orders Ordered: Discontinued Medications Dexamethasone (Dexamethasone 10 Mg/Ml Vial) 10 mg PO NOW ONE Stop: 01/12/24 14:49 Last Admin: 01/12/24 14:53 Dose: 10 mg Documented By: CTS Vital Signs Vital signs: Vital Signs - 8 hr 01/12/24 13:41 Temperature 97.2 F L Pulse Rate 97 H Respiratory Rate 18 Blood Pressure 121/71 Pulse Oximetry 99 Oxygen Delivery Method Room Air <Lyric Gee DO - Last Filed: 01/19/24 11:25> Orders Ordered: Discontinued Medications Dexamethasone (Dexamethasone 10 Mg/Ml Vial) 10 mg PO NOW ONE Stop: 01/12/24 14:49 Last Admin: 01/12/24 14:53 Dose: 10 mg Documented By: CTS Vital Signs Vital signs: Vital Signs - 8 hr 01/12/24 13:41 Temperature 97.2 F L Pulse Rate 97 H Respiratory Rate 18 Blood Pressure 121/71 Pulse Oximetry 99 Oxygen Delivery Method Room Air MDM - Fever <Ingris Turk PA-C - Last Filed: 01/12/24 15:47> [facility] Narrative Medical decision making narrative: Patient is a 28-year-old female presenting for evaluation of sore throat after diagnosis of strep infection 2 days ago. Airway appears patent, tonsils are swollen with presence of exudates, but uvula is midline. My suspicion for peritonsillar abscesses low. Due to patient's pain and swelling appearance of tonsils, we will give her 10 mg of oral dexamethasone. Discussed side effects with patient and she is agreeable with this plan of care. Advised patient that her symptoms should improve over the next several days while continuing to take amoxicillin. She is agreeable with this plan of care. Discussed that she should return to the ER if she should develop difficulty breathing, difficulty swallowing her saliva, hoarse voice or other concerning signs or symptoms. Multiple etiologies for patient's symptoms considered including, but not limited to: Strep pharyngitis, peritonsillar abscess Prior Charts reviewed: Walk-in clinic note 01/10/24 Patient's symptoms improved over duration of stay with above-stated therapies. Findings and discharge diagnosis discussed with patient/family followed by verbalization of understanding Return precautions discussed with patient/family whom verbalize understanding of diagnosis and plan Discharge Plan Departure Patient Disposition: Home Clinical Impression: Strep pharyngitis Activity Restrictions/Additional Instructions: *You have been diagnosed with strep pharyngitis. I advised her to continue taking amoxicillin for your treatment. You should start to experience improvement in her symptoms over the next several days. We have provided you with 10 mg of dexamethasone to help reduce tonsillar swelling and improve her symptoms. I advised her to continue taking Tylenol and ibuprofen as needed. You may take these together or alternate to help control your pain. I recommend soft, called foods such as smoothies to help relieve discomfort. Maintain good hydration. Thank you for coming in today for your care. I hope you feel better soon. *What to do: *Please follow up with your primary care provider in 2-3 days, call for an appointment. Let them know you were seen in the Emergency Department and that we ask that you be seen in follow up. We will electronically transmit a record of today's note if your PCP is in our system *If you do not have a primary care provider please contact the [facility] Resource line at [phone]. They will ask some questions about your medical history and help get you set up with a doctor in the community. *Return to Emergency Department if you should have any new, worsening or concerning symptoms, such as continued elevated fever, worsening pain, difficulty breathing, hoarse voice, difficulty swallowing secretions or other concerning signs or symptoms. Prescriptions: No Action hydroxyzine HCl 25 mg tablet 25 mg PO DAILY buspirone 10 mg tablet 10 mg PO DAILY amoxicillin 500 mg capsule 500 mg PO BID Qty: 20 0RF etonogestrel-ethinyl estradiol [NuvaRing] 0.12-0.015 mg/24 hr ring 1 vaginalrin VAG Q 3 WEEKS Qty: 3 3RF Referrals: Antonia Mcdonald ARNP [Primary Care Provider] - Stand Alone Forms: Patient Portal/API ED Sign-out <Lyric Gee DO - Last Filed: 01/19/24 11:25> Cosign ED Attending Kelechiature Attestation: I was available for consultation.
[2024-01-12] MEDS: DEXAMETHASONE 10 MG/ML VIAL PO (14:53)
[2024-01-12 15:00] VITALS: BP 102/59; PULSE 62; RESP 18; O2SAT 99
== END 2024-01-12 15:09 | disposition home or self-care (01) ==
PROVIDERS: Emergency Provider Physician Assistant; Family Provider Specialist; PCP Family Medicine
DX: J06.0 Acute laryngopharyngitis (principal)
CPT/HCPCS: 99283; J1100

== ENCOUNTER 2024-01-25 11:44 | Day surgery (SDC) | payer OTHER, SELFPAY ==
[2024-01-16 15:06] VITALS: BMI 29.6
[2024-01-25] VITALS (8 sets, daily range): BP systolic 110–124; BP diastolic 70–77; PULSE 77–82; RESP 16; TEMP 36.2–36.6; O2SAT 98–100; BMI 29.8
--- NOTE | 2024-01-25 | PATH_ITS ---
[facility] Accession Number: [id number] No. of containers..03 Tissue . 01 Material submitted: . PART A: fallopian tube - BILATERAL FALLOPIAN TUBES PART B: cervix - LEEP PART C: endocervix - ECC . 01 Diagnosis: A. BILATERAL FALLOPIAN TUBES, BILATERAL SALPINGECTOMY: Benign fallopian tubes. . B. UTERINE CERVIX, LEEP CONIZATION: High-grade squamous intraepithelial lesion (DENISE-2 and DENISE-3/moderate and severe squamous dysplasia), extensively involving the endocervical glands. Negative for glandular dysplasia and invasive carcinoma. Surgical margins: The endocervical margin is involved, multifocally, by high-grade squamous intraepithelial lesion. Remaining margins not involved. . C. ENDOCERVIX, CURETTINGS: Rare fragment of severely dysplastic ectocervical epithelium. Benign endocervical glandular tissue also present. [facility] 01/31/2024 1323 Local . 01 Electronically signed: . Mendoza De La Garza MD, Pathologist NPI- [id number] . 01 Gross description: . A. Received in formalin, labeled with two identifiers and bilateral fallopian tubes, are two unoriented fimbriated fallopian tubes measuring 7.1 x 0.8 cm and 7.4 x 0.9 cm. Both tubes have webb, smooth serosa with no cysts grossly identified and unremarkable stellate lumens. Golf Coach sections to include one-half of bisected fimbriae and cross sections are submitted as follows: A1: Longer fallopian tube. A2: [place] fallopian tube. B. Received in formalin, labeled with two identifiers and LEEP, are two fragments of cervix. The first is circular and unoriented, measuring 1.8 x 1.4 x 0.5 cm with a slit-like os measuring 0.7 cm in diameter. The endocervical margin is inked orange while the remaining stromal margins are inked blue. The second fragment measures 0.8 x 0.6 x 0.3 cm. The convex surface is inked green while the concave surface is inked orange. Both fragments have webb, glistening ectocervix. The specimen is submitted entirely as follows: B1-B4: Circular fragment, sequential quadrants. B5: Second smaller fragment. C. Received in formalin, labeled with two identifiers and ECC, are multiple webb soft tissue fragments admixed with mucohemorrhagic material aggregating to 2.4 x 2.1 x 0.1 cm. Filtered and submitted entirely in cassette C1. ([id number]) /FRR 01/27/2024 1705 Local . 01 Pathologist provided ICD-10: N87.1, D06.9 . 01 CPT . 136401, 839319, 489169 Specimen Comment: A courtesy copy of this report has been sent to [phone] Performed at: 01 [facility] [address] [place] [address], [place], [place] [id number] MD Glen Handy MD Phone: [phone]
[2024-01-25] MEDS: LACTATED RINGERS 1,000 ML 42 ML IV ×2 (12:04→14:25)
[2024-01-25] MEDS: ACETAMINOPHEN 325 MG TABLET 975 MG PO (12:11)
--- NOTE | 2024-01-25 13:19 | PM.PREOP ---
Pre-operative Note Interval Note History & Physical reviewed/Exam performed by Physician: Yes Changes to H&P: No
--- NOTE | 2024-01-25 13:19 | PM.GYNHP.1 ---
History of Present Illness History of Present Illness Reason for admission: other (Sterilization, moderate dysplasia of the cervix) Narrative: Itzel Hong is a 28 year old female care for laparoscopic bilateral salpingectomy for sterilization and LEEP procedure for moderate dysplasia of the cervix [facility] Medical History Healthy adult Surgical History No pertinent past surgical history Social History marital status: household members: spouse and children lives independently: Yes Smoking Status: Never smoker alcohol intake: current Meds Home Medications and Allergies Home Medications Medication Instructions Recorded Confirmed Type etonogestrel 0.12 mg-ethinyl 1 vaginalrin vaginal Q 3 WEEKS #3 03/05/18 01/25/24 Rx estradiol 0.015 mg/24 hr vaginal ea ring (NuvaRing) buspirone 10 mg tablet 10 mg PO DAILY 10/02/23 01/25/24 History hydroxyzine HCl 25 mg tablet 25 mg PO DAILY 10/02/23 01/25/24 History Allergies Allergy/AdvReac Type Severity Reaction Status Date / Time No Known Drug Allergies Allergy Verified 01/25/24 12:04 Review of Systems Review of Systems Narrative: Patient's review of system is negative Exam Vital Signs (past 8 hours): - 01/25/24 11:59 Temperature 97.8 F Pulse Rate 80 Respiratory Rate 16 Blood Pressure 110/73 Pulse Oximetry 100 Oxygen Delivery Method Room Air Oxygen Delivery Method Room Air Narrative Exam Narrative: HEENT exam within normal limits. Lungs are clear to auscultation percussion. Heart is regular rate and rhythm no S3-S4 murmur. Abdomen is soft, nontender with no palpable organomegaly. Pelvic exam not performed. Extremities without edema and nontender. Assessment & Plan Assessment and plan (1) HGSIL (high grade squamous intraepithelial dysplasia): Status: Acute (2) Admission for sterilization: Status: Acute Assessment & Plan narrative: Patient requesting bilateral salpingectomy for sterilization. She is aware of all control options and an does not wish to have any pregnancies. Patient with colposcopy for abnormal Pap smear that showed high-grade dysplasia here for LEEP procedure. Consent form for laparoscopic bilateral salpingectomy and LEEP procedure reviewed with the patient. Patient is aware she will not be able to have any further children after the salpingectomy. Risk of reaction to medication or anesthesia, minimal risk of infection, minimal risk of bleeding enough to require blood transfusion which she is agreeable to if necessary, minimal risk of damage to internal structures such as bowel, bladder, ureters that could require opening the abdomen to repair or additional surgery. Minimal risk of bleeding after LEEP procedure that may require medication or cauterization. Possibility of incomplete removal of the abnormal cervical cells that could require additional follow-up. Patient is aware that the LEEP is removing abnormal cells but unless her body is able to fight off the viral infection it is likely that she will continue to have abnormal Pap smears. Patient is aware that if she already has cervical cancer she will require hysterectomy.
--- NOTE | 2024-01-25 14:07 | SUR.OPER ---
Lithotomy on padded OR bed, head on pillow, arms PADDED AND TUCKED. Legs secured in padded yellow fins stirrups.
[2024-01-25] MEDS: BUPIVACAINE 0.5% W/ EPI (PF) 30 ML VIAL INJ (14:10)
[2024-01-25] MEDS: POTASSIUM IODIDE/IODINE 473 ML SOLUTION TOP (14:33)
[2024-01-25] MEDS: FERRIC SUBSULFATE 8 ML SOLUTION TOP (14:38)
--- NOTE | 2024-01-25 15:01 | P.OP_ITS ---
Operative Date/Time/Diagnoses Date of procedure: 01/25/24 Time of procedure: 15:01 Pre-op diagnosis: Desire for sterilization and moderate dysplasia of the cervix on colpo directed biopsies Post-op diagnosis: same Procedure & Clinicians Procedure: Laparoscopic bilateral salpingectomy, LEEP procedure with ECC Same procedure as scheduled: Yes Indications: Desire for sterilization and moderate dysplasia on colpo directed biopsies Surgeon: Amy Arvizu Click Yes if Unassisted: Yes Anesthesia Type: General Operative Notes Findings: Normal exam under anesthesia. Normal liver edge, bowel surface, uterus, tubes, ovaries. No internal hernias or scar tissue. No endometriosis. Minimal nonstaining area of the cervix near the squamocolumnar junction at the 7 o'clock position Closure Type: primary Specimen(s): other (Bilateral fallopian tubes and LEEP cone biopsy of the cervix with ECC) Estimated Blood Loss (mL): 5 Blood products transfused: none Procedure in detail: Patient was brought to the operating room where she underwent general anesthesi a. She was placed in low yellowfin stirrups and prepped and draped in usual sterile fashion. Pulsatile stockings were in place and functional. Warming was with Kingsley Hugger. A check system was reviewed with staff in the room. Antibiotics were not indicated. A sponge stick was placed in the vagina. The area of the incisions were injected with half percent Marcaine with epinephrine. An incision was made in the umbilicus with a scalpel and the Verres needle placed in the abdomen. Confirmation of correct placement of the needle was performed by withdrawing on the syringe and then allowing fluid to fall freely through the needle. The abdomen was insufflated to 3 L of CO2. A 5 mm trocar was placed under direct visualization. 2 other 5 mm trochars were placed in the right and left lower quadrant under direct visualization after incising the skin. There did not appear to be any damage with placement of the trocars. The right fallopian tube was grasped and removed by cauterizing and cutting the mesosalpinx and across the fallopian tube at the junction with the uterus with the power seal generator. Same procedure was performed on the left fallopian tube. The tubes were brought up out of the abdomen. Adequate hemostasis was noted. The CO2 was allowed to escape from the abdomen. The trochars were removed. Skin was closed with 4-0 monocryl. Next the procedure was switched to vaginal. The coated speculum was placed in the vagina and the cervix was stained with Lugol's. The cervix was injected with 10 cc of Marcaine with epinephrine. The loop set at 80 w was used to remove the entire squamocolumnar junction. The ball cautery set at 60 w was used to cauterize the base and extending out of the incision by about 7 mm extending the treatment zone. There was no bleeding at that point. Monsel's was placed. The patient went to recovery room in stable condition. Complications: none Post-operative Condition: stable Disposition: same day surgery Plan for aftercare: Home when awake and stable
[2024-01-25] MEDS: OXYCODONE IR 5 MG TABLET PO (15:05)
[2024-01-25] MEDS: ONDANSETRON 4 MG/2 ML INJ IV (15:06)
[2024-01-25] MEDS: ALBUTEROL 2.5 MG/3 ML NEB (ADULT) INH (15:10)
== END 2024-01-25 15:59 | disposition home or self-care (01) ==
PROVIDERS: Family Provider Specialist; PCP Family Medicine; Referring Provider Specialist; Visit Provider Specialist
PROC: 0UT74ZZ Resection of Bilateral Fallopian Tubes, Percutaneous Endoscopic Approach (ICD-10-PCS; CPT 58661; principal; 2024-01-25 13:30)
PROC: 0UBC7ZZ Excision of Cervix, Via Natural or Artificial Opening (ICD-10-PCS; CPT 57522; 2024-01-25 13:30)
DX: Z30.2 Encounter for sterilization (principal); N87.1 Moderate cervical dysplasia
CPT/HCPCS: 58661; 57522; 81025; A9270; J2405; J3010; J7613

== ENCOUNTER → 2024-02-13 15:44 | Outpatient (CLI) | payer OTHER, SELFPAY | PROVIDERS: Family Provider Specialist; PCP Nurse Practitioner Family; Visit Provider Student in an Organized Health Care Education/Training Program | DX: N89.8 Other specified noninflammatory disorders of vagina (principal) | CPT/HCPCS: 87255 ==

== ENCOUNTER → 2024-07-08 18:01 | Outpatient (CLI) | payer OTHER, SELFPAY ==
[2024-07-08 19:07] LABS: Influenza A - CEPHEID Flu A NEGATIVE (NEGATIVE); Influenza B - CEPHEID Flu B NEGATIVE (NEGATIVE); Respiratory Syncytial Virus Negative (Negative)
[2024-07-08 19:41] LABS: COVID-19 CEPHEID 4-PLEX PCR Negative (Negative)
== END ==
PROVIDERS: Family Provider Specialist; PCP Nurse Practitioner Family; Visit Provider Nurse Practitioner Family
DX: R05.1 Acute cough (principal)
CPT/HCPCS: 0241U

== ENCOUNTER → 2024-07-08 18:19 | Outpatient (CLI) | payer OTHER, SELFPAY ==
--- NOTE | 2024-07-08 18:22 | DI.RAD.S_ITS ---
PROCEDURE: XR CHEST 2V INDICATIONS: Cough TECHNIQUE: 2 views of the chest were acquired. COMPARISON: None. FINDINGS: Heart, mediastinum and pulmonary vasculature: Heart is normal in size and configuration. Mediastinum is unremarkable. Pulmonary vascular is normal. Lungs: Clear Pleural spaces: Normal-no effusions or pneumothorax. Bones and soft tissues: Normal IMPRESSION: Normal chest. Dictated by: Cabrera Rodriguez M.D. on 07/09/2024 at 10:21 Approved by: Cabrera Rodriguez M.D. on 07/09/2024 at 10:22
== END ==
PROVIDERS: Family Provider Specialist; PCP Nurse Practitioner Family; Referring Provider Nurse Practitioner Family; Visit Provider Nurse Practitioner Family
DX: R05.1 Acute cough (principal)
CPT/HCPCS: 0241U; 71046

== ENCOUNTER → 2024-11-25 18:14 | Outpatient (CLI) | payer OTHER, SELFPAY ==
[2024-11-25 20:56] LABS: Influenza A - CEPHEID Flu A NEGATIVE (NEGATIVE); Influenza B - CEPHEID Flu B NEGATIVE (NEGATIVE); Respiratory Syncytial Virus Negative (Negative)
[2024-11-25 21:01] LABS: COVID-19 CEPHEID 4-PLEX PCR Negative (Negative)
== END ==
PROVIDERS: Family Provider Specialist; PCP Nurse Practitioner Family; Visit Provider Nurse Practitioner Family
DX: R05.1 Acute cough (principal); J02.9 Acute pharyngitis, unspecified
CPT/HCPCS: 0241U; 87070

== ENCOUNTER → 2024-11-25 18:32 | Outpatient (CLI) | payer OTHER, SELFPAY ==
--- NOTE | 2024-11-25 18:34 | DI.RAD.S_ITS ---
PROCEDURE: XR CHEST 2V INDICATIONS: Cough TECHNIQUE: 2 views of the chest were acquired. COMPARISON: [facility], CR, XR CHEST 2V, 07/08/2024, 18:29. FINDINGS: Surgical changes and devices: None. Lungs and pleura: Lungs are clear. No pleural effusions or pneumothorax. Mediastinum: Mediastinal contours are normal. Heart size is normal. Bones and chest wall: No suspicious bony abnormalities. Soft tissues appear unremarkable. IMPRESSION: No acute cardiopulmonary abnormality is seen. Approved by: Israel Garcia M.D. on 11/26/2024 at 19:51
== END ==
LOC: RAD 18:33
PROVIDERS: Family Provider Specialist; PCP Nurse Practitioner Family; Referring Provider Nurse Practitioner Family; Visit Provider Nurse Practitioner Family
DX: R05.9 Cough, unspecified (principal)
CPT/HCPCS: 71046

== ENCOUNTER → 2025-09-02 16:24 | Outpatient (CLI) | payer OTHER, SELFPAY ==
[2025-09-02 17:42] LABS: UR Morphine/Opiate cutoff 300 Negative (Negative); Ur Specific Gravity Normal (Normal); Urine MDMA Negative (Negative); Urine Methamphetamines Negative (Negative); Urine Tetrahydrocannabinol Negative (Negative); Urine Tricyclic Antidepressant Negative (Negative)
== END ==
PROVIDERS: PCP Family Medicine; Referring Provider Psychiatry & Neurology Psychiatry; Visit Provider Psychiatry & Neurology Psychiatry
DX: F17.200 Nicotine dependence, unspecified, uncomplicated (principal); F41.1 Generalized anxiety disorder; F43.10 Post-traumatic stress disorder, unspecified; G47.00 Insomnia, unspecified
CPT/HCPCS: 80305